=== PATIENT | male | born 1935 | race Caucasian/White ===

== ENCOUNTER 2016-11-29 10:54 | Inpatient (IN) ==
--- NOTE | 2016-11-29 11:39 | EKG Report ---
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
--- NOTE | 2016-11-29 11:51 | CT Report ---
CT head/brain wo con Indication: Syncope. CT BRAIN WITHOUT CONTRAST DLP: 9:15 mGy*cm Comparison: 08/03/2013. Date of admission: 11/29/2016. Technique: Axial noncontrast CT images of the brain were obtained. Findings: No acute hemorrhage, mass or mass effect. Generalized atrophy and patchy small vessel ischemic change of the deep white matter has progressed somewhat since previous examination. Old left occipital lobe infarct is stable as well. Cortical morris-white junction is otherwise maintained. No bone lesions. Significant opacification of the left maxillary, and mild mucosal thickening of the right maxillary and ethmoid air cells noted. Impression: 1. No acute intracranial pathology. 2. Progressive generalized atrophy and chronic small vessel ischemic change. Stable left occipital infarct. 3. Severe left maxillary and mild right maxillary and ethmoid sinusitis. PROCEDURE INTERPRETED AT [facility] DEPARTMENT OF RADIOLOGY Final Report Signed by: Carlos Pereira M.D.
--- NOTE | 2016-11-29 11:54 | XRay Report ---
XR chest 1V portable Indication: Shortness of breath. Chest one view: Comparison 08/03/2013. The heart size and mediastinal contour are normal. The lungs and pleural spaces are clear. Bones are unremarkable. Impression: Negative chest. PROCEDURE INTERPRETED AT [facility] DEPARTMENT OF RADIOLOGY Final Report Signed by: Carlos Pereira M.D.
[2016-11-29 12:09] LABS: Basophils % 0.1 % (0.0-0.8); Hemoglobin 10.4 GM/DL (14.0-18.0); Immature Granulocytes % 0.2 %; Immature Granulocytes Absolute 0.02 #; Lymphocytes # 0.6 10*3/uL (1.4-4.0); Lymphocytes % 5.7 % (21.2-54.2); Mean Corpuscular HGB Conc 32.5 GM/DL (32-36); Mean Corpuscular Hemoglobin 25 PG (27-34); Mean Platelet Volume 10.2 FL (9.6-12.0); Monocytes # 0.6 10*3/uL (0.11-0.8); Monocytes % 5.8 % (1.7-12.7); Neutrophils # 8.8 10*3/uL (1.4-7.4); Neutrophils % 88.2 % (38.7-73.9); Platelet Count 279 10*3/uL (130-400); Red Cell Distribution Width 13.2 % (9.3-17.3)
[2016-11-29 12:37] LABS: Alanine Aminotransferase 17 U/L (16-61); Albumin 2.7 G/DL (3.4-5.0); Alkaline Phosphatase 128 U/L (45-117); Aspartate Amino Transferase 9 U/L (0-37); Blood Urea Nitrogen 64 MG/DL (7-18); Calcium 8.8 MG/DL (8.5-10.1); Glucose 491 MG/DL (74-106); Osmolality,Calculated 301.7 MOS/KG (273-304); Potassium 4.6 MMOL/L (3.5-5.1); Sodium 131 MMOL/L (136-145); Total Protein 7.8 G/DL (6.4-8.3); Troponin I Only < 0.015 NG/ML (0.00-0.045)
[2016-11-29 12:59] LABS: Apearance,Urine CLOUDY (Clear); Bacteria,Urine Few /HPF (Few); Bilirubin,Urine Negative (Negative); Blood, Urine Moderate mg/dL (Negative); Glucose,Urine (UA) >=500 mg/dL (Negative); Ketones,Urine Negative (Negative); Mucus,Urine Occasional /LPF (Occasional); Nitrite,Urine Negative (Negative); Protein,Urine 30 MG/DL; RBC,Urine 14 /HPF (0-4); Squamous Epithelial Cell,Urine Occasional /HPF (0-10); Urine Color Yellow (Yellow); Urine Urobilinogen < 2.0 EU/DL (0.2-1.0); WBC,Urine 1645 /HPF (0-6)
[2016-11-29] MEDS ORDERED: LEVOFLOXACIN INJ 500 MG in PREMIX 1 EACH IV STA (13:12)
[2016-11-29] MEDS ORDERED: LEVOFLOXACIN INJ 100 ML IV ONE (13:16)
[2016-11-29] MEDS ORDERED: INSULIN LISPRO 100 UNIT/ML SUBCUT STA (13:33)
--- NOTE | 2016-11-29 13:44 | Emergency Department Note ---
Lencho Guillen Brittany, am scribing for, and in the presence of, Zaire Bone MD 11:18. Lizandro Guillen Doug C, MD, personally performed the services described in this documentation, ascribed by Inge Musa in my presence, and it is both accurate and complete 344 . Arrival - Arrival Chief Complaint: Fall Stated Complaint: FALL ED Nursing Triage Note: C/O FALLING THIS AM, NO KNOWN TIME OF THE FALL, PATIENT HIT ALERT AND CALLED EMS, DENIES HITTING HIS HEAD, DENIES HAVING LOC, UNPON ARRIVAL OF THE MEDIC - ACCUCHECK GREATER THAN THE 650 AND THEN A 518 READING AFTER THEY GAVE PATIENT 500 CC NS.,REPORTS THAT PATIENT IS AT NORMAL MENTAL STATUS/ NO FAMLY PRESENTS , PATIENT ALERT TO SELF AND PLACE,PATIENT DENIES HAVING ANY PAIN/ Mode of Arrival: Stretcher Limitations: No Limitations Source: Patient, Family, RN Notes Reviewed - History of Present Illness HPI Narrative: Patient is a 81-year-old white male who states he was in his kitchen making himself some coffee when he fell to the floor. He thinks he fell over backwards and hit the back of his head but he tells me he remembers the impact and did not lose consciousness. He is unable to tell me the day of the week or the year and according to his son he has had difficulty with his memory since his CVA. Patient denies any headache, neck pain, upper or lower extremity discomfort. He denies any back pain. He does not recall any palpitations, shortness of breath or diaphoresis before he fell. His history is considered of questionable accuracy. Allergies/Adverse Reactions: Allergies Allergy/AdvReac Type Severity Reaction Status Date / Time No Known Allergies Allergy Unverified 03/24/15 13:11 Home Medications: Home Medications Medication Instructions Recorded Confirmed Type Atorvastatin [Lipitor] 40 mg PO DAILY 03/24/15 05/02/16 History Glimepiride [Amaryl] 4 mg PO BID W/MEALS 03/24/15 05/02/16 History Memantine HCl [Namenda] 10 mg PO DAILY 03/24/15 05/02/16 History Tamsulosin [Flomax] 0.4 mg PO DAILY 03/24/15 05/02/16 History metFORMIN [Glucophage] 500 mg PO BID W/MEALS 03/24/15 05/02/16 History Docusate/Senna 50-8.6 [Senokot S] 1 tablet PO DAILY 05/02/16 05/02/16 History Hydrocodone/Acetaminophen 1 each PO Q6H PRN 05/02/16 05/02/16 History [Hydrocodon-Acetaminophn 10325] Review of System - Review of System 12 point system: reviewed and no additional remarkable complaints except as stated - Review of System Constitutional: Present: other (multiple falls). Absent: chills, fever Eyes: Absent: vision change Head/Ears/Nose/Throat: Absent: nasal drainage, sore throat Respiratory: Absent: respiratory distress Cardiovascular: Present: syncope. Absent: chest pain, palpitations Gastrointestinal: Absent: abdominal pain, nausea, vomiting, diarrhea, constipation Genitourinary male: Absent: urgency, dysuria, frequency Musculoskeletal: Absent: arm pain, back pain, leg pain, neck pain Skin: Absent: rash Neurological: Absent: headache Psychiatric: Absent: anxiety, depression Endocrine: Absent: fatigue Hematological/Lymphatic: Absent: easy bleeding, easy bruising Medical,Surgical,& Family Hx - Medical History Cardio: History of: Hypertension Neurology: History of: Dementia Endocrine: History of: Diabetes Mellitus (NIDDM) Genitourinary: History of: Prostate Problems (CA) Gastrointestinal: History of: Bowel Obstruction, Gastrointestinal Cancer (Colon) , GI Problems - Surgical History Abdominal Surgeries: Surgical HX of: Abdominal Surgery, Colonoscopy - Family History Family History: Reports;: Family Diabetes - Social History Smoking Status: Never smoker Frequency of Alcohol Use: None Type of Drug Use: None Exam Vital Signs: Vital Signs Temperature 98.1 F 11/29/16 10:55 Pulse Rate 84 11/29/16 12:26 Respiratory Rate 18 11/29/16 12:26 Blood Pressure 176/79 11/29/16 12:26 O2 Sat by Pulse Oximetry 94 L 11/29/16 12:26 - General General appearance: alert, in no apparent distress - Head Head exam: Present: atraumatic, normocephalic - Eye Eye exam: Present: EOMI. Absent: PERRL (constricted bilaterally, approximately 1 mm) - ENT ENT exam: Present: normal exam, normal oropharynx, mucous membranes moist - Neck Neck exam: Present: full ROM, trachea midline. Absent: tenderness - Chest Chest inspection: Present: symmetric chest wall rise. Absent: tenderness - Respiratory Respiratory exam: Present: normal lung sounds bilaterally. Absent: rales, rhonchi, wheezes - Cardiovascular Cardiovascular exam: Present: regular rate, normal rhythm, normal heart sounds. Absent: murmur, rubs, gallop - Abdominal Exam Abdominal exam: Present: soft, normal bowel sounds. Absent: distention, tenderness - Extremities Exam Extremities exam: Present: full ROM. Absent: tenderness - Back Exam Back exam: Present: full ROM. Absent: tenderness - Neurological Exam Neurological exam: Present: alert, CN II-XII intact. Absent: oriented X3 ( patient is somewhat confused, he is oriented to place but not time), motor sensory deficit - Psychiatric Psychiatric exam: Present: normal affect, normal mood - Skin Skin exam: Present: warm, dry, intact, normal color Course Course Narrative: Patient's clinical presentation, laboratory and radiographic findings were discussed with Dr. Rivas concerning admission. She will arrange for 1 of the of the hospitalist to admit the patient to their service. Results - Labs CBC & BMP: 11/29/16 11:41 11/29/16 11:41 Lab Results: I have reviewed the patients labs Labs: Laboratory Tests 11/29/16 11:09 POC Glucose 428 H Laboratory Tests 11/29/16 11:41 WBC 10.0 RBC 4.10 Hgb 10.4 L Hct 32.0 L MCV 78.0 L MCH 25 L MCHC 32.5 RDW 13.2 Plt Count 279 MPV 10.2 Neut % (Auto) 88.2 H Lymph % (Auto) 5.7 L O'Brien % (Auto) 5.8 Eos % (Auto) 0.0 Baso % (Auto) 0.1 Neut # (Auto) 8.8 H Lymph # (Auto) 0.6 L O'Brien # (Auto) 0.6 Eos # (Auto) 0.0 Baso # (Auto) 0.0 Immature Gran % 0.2 Nucleated RBC % 0.0 Immature Gran # 0.02 Nucleated RBCs # 0.00 Laboratory Tests 11/29/16 11/29/16 11:41 12:26 Sodium 131 L Potassium 4.6 Chloride 96 L Carbon Dioxide 20 L Anion Gap 19.6 H BUN 64 H Creatinine 2.90 H GFR Calculation 20 BUN/Creatinine Ratio 22.00 H Glucose 491 H Calculated Osmolality 301.7 Calcium 8.8 Total Bilirubin 0.80 AST 9 ALT 17 Alkaline Phosphatase 128 H Troponin I < 0.015 Total Protein 7.8 Albumin 2.7 L Globulin 5.1 H Albumin/Globulin Ratio 0.5 L Urine Color Yellow Urine Appearance Cloudy Urine pH 5.0 Ur Specific Harrison 1.010 Urine Protein 30 Urine Glucose (UA) >=500 Urine Ketones Negative Urine Blood Moderate Urine Nitrate Negative Urine Bilirubin Negative Urine Urobilinogen < 2.0 H Urine Leukocytes Large H Urine RBC 14 Urine WBC 1645 Urine WBC Clumps Many Ur Squamous Epith Cells Occasional Urine Bacteria Few Urine Mucus Occasional - Diagnostic Findings Procedure: Chest x-ray: report reviewed by me (Negative chest.), CT: report reviewed by me (head: 1. No acute intracranial pathology; 2. Progressive generalized atrophy and chronic small vessel ischemic change. Stable left occipital infarct; 3. Severe left maxillary and mild right maxillary and ethmoid sinusitis.) Disposition Clinical Impression: Near syncope, UTI (urinary tract infection) Case discussed with: patient, patient's family Disposition: Still a Patient Condition: Guarded Time of Disposition: 13:44
[2016-11-29] MEDS ORDERED: INSULIN LISPRO 100 UNIT/ML SUBCUT ONE (14:02)
[2016-11-29] MEDS ORDERED: ONDANSETRON 4 MG/2 ML VIAL IV PRN (14:18)
[2016-11-29] MEDS ORDERED: ACETAMINOPHEN 325 MG TABLET PO PRN (14:18)
[2016-11-29] MEDS: ENOXAPARIN 30 MG/0.3 ML SYRINGE SUBCUT SCH (17:38)
[2016-11-29] MEDS: SODIUM CHLORIDE 0.45% 1,000 ML IV SCH (17:38)
--- NOTE | 2016-11-29 17:51 | Hospitalist History & Physical ---
Assessment and Plan - Time spent with patient Time spent with patient: Greater than 30 minutes (1) ANGEL (acute kidney injury) Status: Acute Assessment and plan: Will hydrate, obtain renal US to rule out post renal causes. Current Visit: Yes (2) Fall Status: Acute Assessment and plan: PT/OT. Current Visit: Yes (3) Dementia Status: Acute Assessment and plan: Continue home medication. Current Visit: Yes (4) BPH (benign prostatic hyperplasia) Status: Acute Assessment and plan: Continue home med. Current Visit: Yes (5) UTI (urinary tract infection) Status: Acute Assessment and plan: Continue levaquin. Current Visit: Yes (6) Azotemia Status: Acute Assessment and plan: Secondary to ANGEL. Current Visit: Yes (7) Diabetes mellitus Status: Acute Assessment and plan: Medium dose SSI. Accuchecks. Current Visit: Yes History of Present Illness Chief complaint: Fall History of present illness: Mr. Sosa is a 81 year old male with a medical history of CVA, diabetes mellitus , BPH, dementia presents with confusion and fall. Family brought the patient in because he had fallen in the kitchen while trying to make coffee. Patient's has attempted to explain what happened however the explanation was somewhat nonsensical. Patient denies having a fever, nausea, vomiting, chest pain, shortness of breath, diarrhea, melena. While in the ED the patient was found to have a urinary tract infection. Internal medicine was counseled for admission. Home Medications Medication Instructions Recorded Confirmed Type Atorvastatin [Lipitor] 40 mg PO DAILY 03/24/15 11/29/16 History Memantine HCl [Namenda] 10 mg PO BEDTIME 03/24/15 11/29/16 History Tamsulosin [Flomax] 0.4 mg PO DAILY 03/24/15 11/29/16 History metFORMIN [Glucophage] 500 mg PO BID W/MEALS 03/24/15 11/29/16 History Allergies Allergy/AdvReac Type Severity Reaction Status Date / Time No Known Allergies Allergy Unverified 03/24/15 13:11 Medical,Surgical,& Family Hx - Medical History Cardio: History of: Hypertension Neurology: History of: Cerebrovascular Accident, Dementia Endocrine: History of: Diabetes Mellitus (NIDDM) Genitourinary: History of: Prostate Problems (CA) Gastrointestinal: History of: Bowel Obstruction, Gastrointestinal Cancer (Colon) , GI Problems - Surgical History Abdominal Surgeries: Surgical HX of: Abdominal Surgery, Colonoscopy - Family History Family History: Reports;: Family Diabetes (mother and father) - Social History Smoking Status: Never smoker Frequency of Alcohol Use: None Type of Drug Use: None ROS unobtainable: due to encephalopathy 12 point system: reviewed and no additional remarkable complaints except as stated Exam - Constitutional Vitals: Period Temp Pulse Resp BP Sys/Childers Pulse Ox Last 24 Hr 96.9 F 80 18 166/91 100 General appearance: no acute distress - Head Head exam: Present: normocephalic, atraumatic - Eye Eye exam: Present: EOMI Pupils: Present: GABRIEL - ENT ENT exam: Present: normal exam - Neck Neck exam: Present: normal inspection - Respiratory Respiratory exam: Present: clear to auscultation bilaterally. Absent: rhonchi, wheezes - Cardiovascular Cardiovascular exam: Present: regular rate and rhythm. Absent: gallop, rubs, systolic murmur - GI/Abdominal GI/Abdominal exam: Present: normal bowel sounds, soft. Absent: distended, firm , guarding, tenderness, rebound - Extremities Exam Extremities exam: Present: normal inspection. Absent: calf tenderness, edema Results - Labs CBC & BMP: 11/29/16 11:41 11/29/16 11:41 Lab Results: I have reviewed the past 24 hour labs
[2016-11-29] MEDS ORDERED: GLUCAGON 1 MG VIAL IM PRN (18:01)
[2016-11-29] MEDS ORDERED: DEXTROSE 50% 25 GM/50 ML VIAL IV PRN (18:01)
--- NOTE | 2016-11-29 21:06 | Ultrasound Report ---
US renal Bilateral Indication: Acute renal failure. Renal ultrasound: Grayscale and color Doppler imaging of the kidneys and bladder performed. Right kidney 116 x 54 x 51 mm. Left kidney 111 x 56 x 47 mm. No mass, cyst or calcification of either kidney. Color Doppler flow both renal irving noted. Mild/moderate bilateral hydronephrosis present. Bladder is distended, volume 2038 cc. Bilateral ureter jets are present. Impression: Bladder outlet obstruction with bilateral hydronephrosis. PROCEDURE INTERPRETED AT [facility] DEPARTMENT OF RADIOLOGY Final Report Signed by: Carlos Pereira M.D.
[2016-11-29] MEDS: INSULIN REGULAR 100 UNIT/ML SUBCUT SCH (21:29)
[2016-11-29] MEDS: DOCUSATE SODIUM 100 MG CAPSULE PO SCH (21:30)
[2016-11-29] MEDS: MEMANTINE 10 MG TABLET PO SCH (21:30)
[2016-11-30] MEDS: SODIUM CHLORIDE 0.45% 1,000 ML IV SCH ×4 (03:40→21:18)
[2016-11-30 03:46] LABS: Calcium 8.6 MG/DL (8.5-10.1); Potassium 3.9 MMOL/L (3.5-5.1)
[2016-11-30 03:49] LABS: Basophils % 0.3 % (0.0-0.8); Eosinophils # 0.1 10*3/uL (0.0-0.87); Eosinophils % 0.7 % (0.00-10.9); Hematocrit 30.1 VOL% (42.0-52.0); Hemoglobin 9.6 GM/DL (14.0-18.0); Immature Granulocytes % 0.3 %; Immature Granulocytes Absolute 0.03 #; Lymphocytes # 1.4 10*3/uL (1.4-4.0); Lymphocytes % 14.6 % (21.2-54.2); Mean Corpuscular HGB Conc 31.9 GM/DL (32-36); Mean Corpuscular Hemoglobin 25 PG (27-34); Mean Corpuscular Volume 78.4 FL (87-102); Mean Platelet Volume 10.1 FL (9.6-12.0); Monocytes # 0.8 10*3/uL (0.11-0.8); Monocytes % 8.6 % (1.7-12.7); Neutrophils # 7.2 10*3/uL (1.4-7.4); Neutrophils % 75.5 % (38.7-73.9); Platelet Count 283 10*3/uL (130-400); Red Blood Count 3.84 10*6/uL (3.8-5.5); Red Cell Distribution Width 13.3 % (9.3-17.3); White Blood Count 9.5 10*3/uL (4.5-13.71)
[2016-11-30] MEDS: INSULIN REGULAR 100 UNIT/ML SUBCUT SCH ×4 (08:52→21:18)
[2016-11-30] MEDS: LEVOFLOXACIN INJ 250 MG in PREMIX 1 EACH IV SCH (08:54)
[2016-11-30] MEDS: DOCUSATE SODIUM 100 MG CAPSULE PO SCH ×2 (08:54→21:18)
[2016-11-30] MEDS: ATORVASTATIN 40 MG TABLET PO SCH (08:54)
[2016-11-30] MEDS: PANTOPRAZOLE 40 MG TABLET PO SCH (08:54)
[2016-11-30] MEDS: TAMSULOSIN 0.4 MG CAPSULE PO SCH (08:54)
[2016-11-30 11:44] LABS: Bacteria,Urine Few /HPF (Few); Bilirubin,Urine Negative (Negative); Blood, Urine Moderate mg/dL (Negative); Glucose,Urine (UA) >=500 mg/dL (Negative); Ketones,Urine Negative (Negative); Mucus,Urine Few /LPF (Occasional); Nitrite,Urine Negative (Negative); Protein,Urine 100 MG/DL; RBC,Urine 289 /HPF (0-4); Squamous Epithelial Cell,Urine Few /HPF (0-10); Urine Specific Gravity 1.006 (1.001-1.035); Urine Urobilinogen < 2.0 EU/DL (0.2-1.0); WBC,Urine 5478 /HPF (0-6)
[2016-11-30 11:46] LABS: Apearance,Urine Turbid (Clear); Urine Color Yellow (Yellow)
--- NOTE | 2016-11-30 13:16 | Urology Progress Note ---
Urology - PN: Subj Interval history: Thanks for calling Full consult dictated - Conf #20 AUR leave raphael con't flomax await UCX will notify Dr Bone Will attempt trial of void later in week Pt may need TURP in future Exam - Constitutional Vitals: Period Temp Pulse Resp BP Sys/Childers Pulse Ox Last 24 Hr 96.9 F-98.6 F 78-103 15-20 101-204/47-93 95-100 Results - Labs CBC & BMP: 11/30/16 02:32 11/30/16 02:32
--- NOTE | 2016-11-30 13:44 | Hospitalist Progress Note ---
Assessment and Plan - Time spent with patient Time spent with patient: Greater than 30 minutes (1) ANGEL (acute kidney injury) Status: Acute Assessment and plan: Post renal. Current Visit: Yes (2) Fall Status: Acute Assessment and plan: PT/OT. Current Visit: Yes (3) Dementia Status: Acute Assessment and plan: Continue home medication. Current Visit: Yes (4) BPH (benign prostatic hyperplasia) Status: Acute Assessment and plan: Continue home med. Current Visit: Yes (5) UTI (urinary tract infection) Status: Acute Assessment and plan: Continue levaquin. Current Visit: Yes (6) Azotemia Status: Acute Assessment and plan: Secondary to ANGEL. Current Visit: Yes (7) Diabetes mellitus Status: Acute Assessment and plan: Medium dose SSI. Accuchecks. Current Visit: Yes Hospitalist: Subjective Interval history: No complaints. Patient had a raphael placed this morning. Exam - Constitutional Vitals: Period Temp Pulse Resp BP Sys/Childers Pulse Ox Last 24 Hr 96.9 F-98.6 F 78-103 15-20 101-204/47-93 95-100 General appearance: no acute distress - Head Head exam: Present: normocephalic, atraumatic - Eye Eye exam: Present: EOMI Pupils: Present: GABRIEL - ENT ENT exam: Present: normal exam - Neck Neck exam: Present: normal inspection - Respiratory Respiratory exam: Present: clear to auscultation bilaterally. Absent: rhonchi, wheezes - Cardiovascular Cardiovascular exam: Present: regular rate and rhythm. Absent: gallop, rubs, systolic murmur - GI/Abdominal GI/Abdominal exam: Present: normal bowel sounds, soft. Absent: distended, firm , guarding, tenderness, rebound - Extremities Exam Extremities exam: Present: normal inspection. Absent: calf tenderness, edema Results - Labs CBC & BMP: 11/30/16 02:32 11/30/16 02:32 Lab Results: I have reviewed the past 24 hour labs
[2016-11-30] MEDS ORDERED: INSULIN LISPRO 100 UNIT/ML SUBCUT ONE (14:47)
[2016-11-30] MEDS: ENOXAPARIN 30 MG/0.3 ML SYRINGE SUBCUT SCH (15:13)
--- NOTE | 2016-11-30 17:26 | Consultation ---
DATE OF CONSULT: 11/30/2016 REASON FOR CONSULTATION: 1. Urinary retention. 2. Prostate hyperplasia. 3. Acute renal failure. Thank you for asking Urology Service to see Mr. Sosa. HISTORY OF PRESENT ILLNESS: Mr. Sosa is an 81-year-old male who was admitted on 11/29/2016 after a same level fall. He had some mental status changes. On admission, he was found to have a creatini ne of 3.3. I am not sure what his baseline is. He is unable to give a reasonable history due to ba seline dementia. In review of the chart and in discussion with the nursing staff, he had an abdominal ultrasound whic h showed bilateral hydroureteronephrosis down to the level of the distended bladder. Ultrasonograph y calculated the bladder volume at approximately 2 liters. A Dennis catheter has been placed and lucio roximately 80 ml of urine drained immediately followed quickly by another [address] the catheter was placed another 800 ml is in the bag for a total of almost 2 liters now. Mr. Sosa states he feels much better with the Dennis catheter having been placed. Initially when I had asked him if he had seen a urologist, he states he has not ever seen a urologist. I asked him i f he is on any prostate medication. He states he thinks he is on Flomax and that Dr. Bone presc ribed this. I then asked about seeing a urologist and then he remembered that he had in fact seen Chanda Bone. He denies any history of prostate surgery. Past medical, surgical, social, and family history is reviewed on the chart. REVIEW OF SYSTEMS: Twelve systems was attempted but unable to be obtained adequately due to his dem entia. I did review the review of systems on the admission history and physical. PHYSICAL EXAMINATION GENERAL: A well-developed, well-nourished male in no acute distress. HEENT: Normocephalic, atraumatic. NECK: No JVD. CHEST: Equal expansion bilaterally. ABDOMEN: Soft, nontender, nondistended. SKIN: Warm and dry. NEUROLOGIC: Nonfocal. GENITOURINARY: A Dennis catheter draining clear urine into the bedside bag. LABORATORY DATA: Creatinine is 3.3. Renal ultrasound images were personally reviewed showing bilateral hydroureteronephrosis and a marke dly distended bladder. Urinalysis appears grossly infected. I explained to Mr. Sosa that we are going to leave the catheter in for a while to allow the bladder to rest. He may have to be observed for post-obstructive diuresis and fluids were placed according ly. I recommend that he continue the Flomax and leave the catheter in for several days. He may end up needing a TURP. IMPRESSION: 1. URINARY RETENTION. 2. RENAL INSUFFICIENCY SECONDARY TO URINARY RETENTION. 3. BILATERAL HYDRONEPHROSIS SECONDARY TO URINARY RETENTION. PLAN: 1. Dennis catheter is in place. 2. Continue Flomax daily. 3. Urine has been sent for culture. 4. I will notify Dr. Matheus Bone that Mr. Sosa has been admitted, and Mr. Sosa will likely need a trial of void versus a TURP later on this week. Thank you for asking Urology Service to see Mr. Sosa.
[2016-11-30] MEDS: INSULIN GLARGINE 100 UNIT/ML SUBCUT SCH (21:18)
[2016-11-30] MEDS: MEMANTINE 10 MG TABLET PO SCH (21:18)
[2016-12-01] MEDS: SODIUM CHLORIDE 0.45% 1,000 ML IV SCH ×4 (02:25→22:21)
[2016-12-01 06:30] LABS: Basophils % 0.1 % (0.0-0.8); Eosinophils # 0.1 10*3/uL (0.0-0.87); Eosinophils % 0.8 % (0.00-10.9); Hematocrit 28.2 VOL% (42.0-52.0); Hemoglobin 9.1 GM/DL (14.0-18.0); Immature Granulocytes % 0.5 %; Immature Granulocytes Absolute 0.04 #; Lymphocytes # 1.2 10*3/uL (1.4-4.0); Lymphocytes % 14.9 % (21.2-54.2); Mean Corpuscular HGB Conc 32.3 GM/DL (32-36); Mean Corpuscular Hemoglobin 25 PG (27-34); Mean Corpuscular Volume 77.7 FL (87-102); Mean Platelet Volume 10.1 FL (9.6-12.0); Monocytes # 0.7 10*3/uL (0.11-0.8); Monocytes % 8.2 % (1.7-12.7); Neutrophils % 75.5 % (38.7-73.9); Platelet Count 269 10*3/uL (130-400); Red Blood Count 3.63 10*6/uL (3.8-5.5); Red Cell Distribution Width 13.3 % (9.3-17.3)
[2016-12-01 06:55] LABS: Calcium 8.1 MG/DL (8.5-10.1); Osmolality,Calculated 292.5 MOS/KG (273-304)
[2016-12-01] MEDS: DOCUSATE SODIUM 100 MG CAPSULE PO SCH ×2 (09:21→21:02)
[2016-12-01] MEDS: LEVOFLOXACIN INJ 250 MG in PREMIX 1 EACH IV SCH (09:21)
[2016-12-01] MEDS: PANTOPRAZOLE 40 MG TABLET PO SCH (09:21)
[2016-12-01] MEDS: INSULIN REGULAR 100 UNIT/ML SUBCUT SCH ×4 (09:21→21:03)
[2016-12-01] MEDS: ATORVASTATIN 40 MG TABLET PO SCH (09:21)
[2016-12-01] MEDS: TAMSULOSIN 0.4 MG CAPSULE PO SCH ×2 (09:21→21:02)
--- NOTE | 2016-12-01 10:21 | Urology Consultation ---
Assessment and Plan - Time spent with patient Time spent with patient: Greater than 30 minutes (1) BPH (benign prostatic hyperplasia) Status: Acute Assessment and plan: I'm going to double his Flomax dose and add Avodart. I will remove the catheter tomorrow morning and begin in and out cathetering him. This may be something he will have to do from now on. Current Visit: Yes History of Present Illness - Data of Consult Patient: known to practice within the last 3 years Consult date: 12/01/16 Requesting Physician: Marsha Iraheta Primary care physician: Ronald Lara - Consult Narrative Reason for consult: BPH with urinary retention, bilateral hydronephrosis, renal failure History of present illness: Mr. Sosa is a 81 year old male who is very well known to me. History of BPH in the past. History of bladder cancer for many years. I scoped him about once a year. He's been on Flomax for years. He apparently developed urinary retention has bilateral hydronephrosis and his creatinine was up to 3.3. He apparently had approximately 2 liters in his bladder. His creatinine now is dropped to 2.9. The Flomax is been restarted. I recommend we double the dose and add Avodart. He is on a lot of dimension medicines which are somewhat his bladder down and that is probably the normal one factor affecting this. I will remove his Dennis and give him a voiding trial and in and out cathetering. He may require intermittent catheter from now on. CC: Marsha Iraheta MD - Home Medications and Allergies Home Medications: Home Medications Medication Instructions Recorded Confirmed Type Atorvastatin [Lipitor] 40 mg PO DAILY 03/24/15 11/29/16 History Memantine HCl [Namenda] 10 mg PO BEDTIME 03/24/15 11/29/16 History Tamsulosin [Flomax] 0.4 mg PO DAILY 03/24/15 11/29/16 History metFORMIN [Glucophage] 500 mg PO BID W/MEALS 03/24/15 11/29/16 History Allergies/Adverse Reactions: Allergies Allergy/AdvReac Type Severity Reaction Status Date / Time No Known Allergies Allergy Unverified 03/24/15 13:11 12 point system: reviewed and no additional remarkable complaints except as stated Exam - Constitutional Vitals: Period Temp Pulse Resp BP Sys/Childers Pulse Ox Last 24 Hr 97.4 F-99.5 F 76-91 18-20 133-186/68-81 95-99 - GI/Abdominal GI/Abdominal exam: Present: normal bowel sounds, tenderness (suprapubic), soft. Absent: ascites, distended, firm, guarding, mass, rebound - Genitourinary Genitourinary: scrotum without lesions, cysts, edema or rash, penis with no lesions or discharge (Dennis in place), diffusely enlarged prostate without tenderness Results - Labs CBC & BMP: 12/01/16 05:09 12/01/16 05:09 Lab Results: I have reviewed the past 24 hour labs - Diagnostic Findings Procedure: Ultrasound: report reviewed by me
[2016-12-01] MEDS: DUTASTERIDE 0.5 MG CAPSULE PO SCH (11:32)
[2016-12-01] MEDS: cefTRIAXone 1,000 MG in SODIUM CHLORIDE 0.9% 100 ML IV SCH (11:33)
[2016-12-01] MEDS: ENOXAPARIN 30 MG/0.3 ML SYRINGE SUBCUT SCH (14:08)
[2016-12-01] MEDS ORDERED: BISACODYL 5 MG TABLET PO PRN (16:55)
[2016-12-01] MEDS ORDERED: MAGNESIUM CITRATE 300 ML BOTTLE PO PRN (16:58)
--- NOTE | 2016-12-01 17:10 | Hospitalist Progress Note ---
Assessment and Plan - Time spent with patient Time spent with patient: Greater than 30 minutes (1) ANGEL (acute kidney injury) Status: Acute Assessment and plan: Post renal. Current Visit: Yes (2) Fall Status: Acute Assessment and plan: PT/OT. Current Visit: Yes (3) Dementia Status: Acute Assessment and plan: Continue home medication. Current Visit: Yes (4) BPH (benign prostatic hyperplasia) Status: Acute Assessment and plan: Continue home med. Current Visit: Yes (5) UTI (urinary tract infection) Status: Acute Assessment and plan: Continue rocephin. E coli. Current Visit: Yes (6) Azotemia Status: Acute Assessment and plan: Secondary to ANGEL. Current Visit: Yes (7) Diabetes mellitus Status: Acute Assessment and plan: Medium dose SSI. Accuchecks. Current Visit: Yes Hospitalist: Subjective Interval history: No complaints, no overnight events. Exam - Constitutional Vitals: Period Temp Pulse Resp BP Sys/Childers Pulse Ox Last 24 Hr 98.4 F 82 20 152/70 90 General appearance: no acute distress - Head Head exam: Present: normocephalic, atraumatic - Eye Eye exam: Present: EOMI Pupils: Present: GABRIEL - ENT ENT exam: Present: normal exam - Neck Neck exam: Present: normal inspection - Respiratory Respiratory exam: Present: clear to auscultation bilaterally. Absent: rhonchi, wheezes - Cardiovascular Cardiovascular exam: Present: regular rate and rhythm. Absent: gallop, rubs, systolic murmur - GI/Abdominal GI/Abdominal exam: Present: normal bowel sounds, soft. Absent: distended, firm , guarding, tenderness, rebound - Extremities Exam Extremities exam: Present: normal inspection. Absent: calf tenderness, edema Results - Labs CBC & BMP: 12/01/16 05:09 12/01/16 05:09 Lab Results: I have reviewed the past 24 hour labs
[2016-12-01] MEDS: INSULIN GLARGINE 100 UNIT/ML SUBCUT SCH (21:02)
[2016-12-01] MEDS: MEMANTINE 10 MG TABLET PO SCH (21:02)
[2016-12-02] MEDS: SODIUM CHLORIDE 0.45% 1,000 ML IV SCH ×3 (06:14→21:32)
[2016-12-02 06:20] LABS: Basophils % 0.1 % (0.0-0.8); Eosinophils # 0.1 10*3/uL (0.0-0.87); Eosinophils % 1.4 % (0.00-10.9); Hematocrit 29.6 VOL% (42.0-52.0); Hemoglobin 9.4 GM/DL (14.0-18.0); Immature Granulocytes % 0.5 %; Immature Granulocytes Absolute 0.04 #; Lymphocytes # 1.1 10*3/uL (1.4-4.0); Lymphocytes % 14.1 % (21.2-54.2); Mean Corpuscular HGB Conc 31.8 GM/DL (32-36); Mean Corpuscular Hemoglobin 25 PG (27-34); Mean Corpuscular Volume 78.3 FL (87-102); Mean Platelet Volume 9.9 FL (9.6-12.0); Monocytes # 0.7 10*3/uL (0.11-0.8); Monocytes % 8.9 % (1.7-12.7); Platelet Count 302 T/CUMM (130-400); Red Blood Count 3.78 MC/CUMM (3.8-5.5); Red Cell Distribution Width 13.5 % (9.3-17.3)
[2016-12-02 06:51] LABS: Calcium 8.1 MG/DL (8.5-10.1); Osmolality,Calculated 289.4 MOS/KG (273-304); Potassium 4.2 MMOL/L (3.5-5.1)
[2016-12-02] MEDS: INSULIN REGULAR 100 UNIT/ML SUBCUT SCH ×4 (08:09→20:06)
[2016-12-02] MEDS: DUTASTERIDE 0.5 MG CAPSULE PO SCH (08:58)
[2016-12-02] MEDS: DOCUSATE SODIUM 100 MG CAPSULE PO SCH ×2 (08:59→20:06)
[2016-12-02] MEDS: ATORVASTATIN 40 MG TABLET PO SCH (09:00)
[2016-12-02] MEDS: TAMSULOSIN 0.4 MG CAPSULE PO SCH ×2 (09:00→20:06)
[2016-12-02] MEDS: PANTOPRAZOLE 40 MG TABLET PO SCH (09:01)
[2016-12-02] MEDS: cefTRIAXone 1,000 MG in SODIUM CHLORIDE 0.9% 100 ML IV SCH (09:33)
--- NOTE | 2016-12-02 11:39 | Urology Progress Note ---
Assessment and Plan (1) BPH (benign prostatic hyperplasia) Status: Acute Assessment and plan: I'm going to double his Flomax dose and add Avodart. I will remove the catheter tomorrow morning and begin in and out cathetering him. This may be something he will have to do from now on. Current Visit: Yes Urology - PN: Subj Interval history: Patient's catheter is out. He is yet to void. We will again intermittent catheterization. He needs to ambulate. Exam - Constitutional Vitals: Period Temp Pulse Resp BP Sys/Childers Pulse Ox Last 24 Hr 97.9 F-99.1 F 78-87 16-20 149-164/64-95 90-99 Results - Labs CBC & BMP: 12/02/16 05:23 12/02/16 05:23
[2016-12-02] MEDS: ENOXAPARIN 30 MG/0.3 ML SYRINGE SUBCUT SCH (13:50)
--- NOTE | 2016-12-02 14:42 | Hospitalist Progress Note ---
Assessment and Plan - Time spent with patient Time spent with patient: Greater than 30 minutes (1) UTI (urinary tract infection) Status: Acute Assessment and plan: Continue rocephin. E coli. Current Visit: Yes (2) ANGEL (acute kidney injury) Status: Acute Assessment and plan: Post renal. Improving. Current Visit: Yes (3) Fall Status: Acute Assessment and plan: PT/OT. Current Visit: Yes (4) Dementia Status: Acute Assessment and plan: Continue home medication. Current Visit: Yes (5) BPH (benign prostatic hyperplasia) Status: Acute Assessment and plan: Continue home med. Current Visit: Yes (6) Azotemia Status: Acute Assessment and plan: Secondary to ANGEL. Current Visit: Yes (7) Diabetes mellitus Status: Acute Assessment and plan: Medium dose SSI. Accuchecks. Current Visit: Yes Hospitalist: Subjective Interval history: No complaints, no overnight events. Exam - Constitutional Vitals: Period Temp Pulse Resp BP Sys/Childers Pulse Ox Last 24 Hr 97.9 F-99.1 F 78-87 16-20 149-164/64-95 90-99 General appearance: no acute distress - Head Head exam: Present: normocephalic, atraumatic - Eye Eye exam: Present: EOMI Pupils: Present: GABRIEL - ENT ENT exam: Present: normal exam - Neck Neck exam: Present: normal inspection - Respiratory Respiratory exam: Present: clear to auscultation bilaterally. Absent: rhonchi, wheezes - Cardiovascular Cardiovascular exam: Present: regular rate and rhythm. Absent: gallop, rubs, systolic murmur - GI/Abdominal GI/Abdominal exam: Present: normal bowel sounds, soft. Absent: distended, firm , guarding, tenderness, rebound - Extremities Exam Extremities exam: Present: normal inspection. Absent: calf tenderness, edema Results - Labs CBC & BMP: 12/02/16 05:23 12/02/16 05:23 Lab Results: I have reviewed the past 24 hour labs
[2016-12-02] MEDS: MEMANTINE 10 MG TABLET PO SCH (20:06)
[2016-12-02] MEDS: INSULIN GLARGINE 100 UNIT/ML SUBCUT SCH (20:06)
[2016-12-03 03:40] LABS: Basophils % 0.3 % (0.0-0.8); Eosinophils # 0.1 10*3/uL (0.0-0.87); Eosinophils % 1.9 % (0.00-10.9); Hematocrit 26.4 VOL% (42.0-52.0); Hemoglobin 8.6 GM/DL (14.0-18.0); Immature Granulocytes % 0.8 %; Immature Granulocytes Absolute 0.05 #; Lymphocytes # 1.5 10*3/uL (1.4-4.0); Lymphocytes % 22.7 % (21.2-54.2); Mean Corpuscular HGB Conc 32.6 GM/DL (32-36); Mean Corpuscular Hemoglobin 25 PG (27-34); Mean Corpuscular Volume 77.9 FL (87-102); Mean Platelet Volume 9.7 FL (9.6-12.0); Monocytes # 0.6 10*3/uL (0.11-0.8); Neutrophils # 4.2 10*3/uL (1.4-7.4); Neutrophils % 65.3 % (38.7-73.9); Platelet Count 251 T/CUMM (130-400); Red Blood Count 3.39 MC/CUMM (3.8-5.5); Red Cell Distribution Width 13.6 % (9.3-17.3); White Blood Count 6.5 T/CUMM (4-12)
[2016-12-03 04:19] LABS: Calcium 7.8 MG/DL (8.5-10.1); Potassium 4.3 MMOL/L (3.5-5.1)
[2016-12-03] MEDS: DUTASTERIDE 0.5 MG CAPSULE PO SCH (08:10)
[2016-12-03] MEDS: TAMSULOSIN 0.4 MG CAPSULE PO SCH (08:11)
[2016-12-03] MEDS: ATORVASTATIN 40 MG TABLET PO SCH (08:11)
[2016-12-03] MEDS: PANTOPRAZOLE 40 MG TABLET PO SCH (08:11)
[2016-12-03] MEDS: DOCUSATE SODIUM 100 MG CAPSULE PO SCH (08:11)
[2016-12-03] MEDS: INSULIN REGULAR 100 UNIT/ML SUBCUT SCH ×2 (08:16→13:37)
--- NOTE | 2016-12-03 09:32 | Urology Progress Note ---
Assessment and Plan (1) BPH (benign prostatic hyperplasia) Status: Acute Assessment and plan: I'm going to double his Flomax dose and add Avodart. I will remove the catheter tomorrow morning and begin in and out cathetering him. This may be something he will have to do from now on. Current Visit: Yes Urology - PN: Subj Interval history: The patient is not functioning. His residuals are from 850 to 1200 cc. The patient is going to time manner. I will stop Rocephin and place him on Bactrim twice a day. He needs to be on that for 10 days. I will follow him up a time manner. Exam - Constitutional Vitals: Period Temp Pulse Resp BP Sys/Childers Pulse Ox Last 24 Hr 98.5 F-99.8 F 78-85 16-20 153-169/64-76 95-98 Results - Labs CBC & BMP: 12/03/16 03:20 12/03/16 03:20
--- NOTE | 2016-12-03 11:09 | Discharge Summary ---
<Alfreda Tovar - Last Filed: 12/03/16 11:06> Hospital Course - Hospital Course Hospital Course: Mr. Sosa was admitted on 11/29 with acute kidney injury, falls, UTI along with his dementia, and diabetes. Dr. Matheus Bone was consulted for urology and saw Mr. Sosa on 12/01/16 for BPH. His Flomax was doubled and avodart was added. He also has a hx of bladder cancer. He was started on a medium dose sliding scale for elevated glucoses. He was initially started on Rocephin and this was stopped and he was placed on Bactrim BID. Urology feels that he will need to be on this for 10 days total. His creatinine is down from 2.9 at 1.5 today and he has improved and ready for discharge. He will be discharged home on Bactrim BID x 10 days and appropriate follow up. - Time spent with patient Time with patient DS: Greater than 30 minutes (due to plan, doc and med rec.) Diagnosis - Discharge Diagnosis (1) ANGEL (acute kidney injury) Status: Acute (2) Azotemia Status: Acute (3) BPH (benign prostatic hyperplasia) Status: Acute (4) Dementia Status: Acute (5) Diabetes mellitus Status: Acute (6) Fall Status: Acute (7) E. coli UTI Status: Acute Discharge Plan - Discharge Data Disposition: Rehab Fac/Unit W Plan Readm - Discharge Medications New Atorvastatin [Lipitor] 40 mg PO DAILY tablet Dutasteride [Avodart] 0.5 mg PO DAILY capsule Insulin Regular [HumuLIN R] See Protocol SUBCUT ACHS injection Magnesium Citrate [Citroma] 300 ml PO DAILY PRN #0 bottle PRN Reason: constipation Memantine [Namenda] 10 mg PO BEDTIME tablet Tamsulosin [Flomax] 0.4 mg PO BID capsule Docusate Sodium Cap [Colace Cap] 100 mg PO BID capsule Insulin Glargine [Lantus] 15 unit SUBCUT BEDTIME injection Sulfameth/Trimeth 800-160 Tab [Bactrim DS Tab] 1 tablet PO BID tablet Continue metFORMIN [Glucophage] 500 mg PO BID W/MEALS Discontinued Memantine HCl [Namenda] 10 mg PO BEDTIME Tamsulosin [Flomax] 0.4 mg PO DAILY Atorvastatin [Lipitor] 40 mg PO DAILY - Follow Up or Referral - Forms/Instructions Exam - Constitutional Vitals: Period Temp Pulse Resp BP Sys/Childers Pulse Ox Last 24 Hr 97.6 F-99.8 F 76-86 16-20 140-169/64-73 95-98 Discharge Results Labs on day of discharge: Labs from last 24 hours 12/03/16 12/03/16 12/03/16 11:15 07:11 03:20 WBC RBC Hgb Hct MCV MCH MCHC RDW Plt Count MPV Neut % (Auto) Lymph % (Auto) Ashley % (Auto) Eos % (Auto) Baso % (Auto) Neut # (Auto) Lymph # (Auto) Ashley # (Auto) Eos # (Auto) Baso # (Auto) Immature Gran % Nucleated RBC % Immature Gran # Nucleated RBCs # Sodium 143 Potassium 4.3 Chloride 109 H Carbon Dioxide 26 Anion Gap 12.3 BUN 23 H Creatinine 1.50 H GFR Calculation 46 BUN/Creatinine Ratio 15.00 Glucose 98 POC Glucose 220 H 97 Calculated Osmolality 288.0 Calcium 7.8 L 12/03/16 12/02/16 12/02/16 03:20 19:08 16:20 WBC 6.5 RBC 3.39 L Hgb 8.6 L Hct 26.4 L MCV 77.9 L MCH 25 L MCHC 32.6 RDW 13.6 Plt Count 251 MPV 9.7 Neut % (Auto) 65.3 Lymph % (Auto) 22.7 Ashley % (Auto) 9.0 Eos % (Auto) 1.9 Baso % (Auto) 0.3 Neut # (Auto) 4.2 Lymph # (Auto) 1.5 Ashley # (Auto) 0.6 Eos # (Auto) 0.1 Baso # (Auto) 0.0 Immature Gran % 0.8 Nucleated RBC % 0.0 Immature Gran # 0.05 Nucleated RBCs # 0.00 Sodium Potassium Chloride Carbon Dioxide Anion Gap BUN Creatinine GFR Calculation BUN/Creatinine Ratio Glucose POC Glucose 288 H 294 H Calculated Osmolality Calcium DS: Provider Date of admission: 12/01/16 14:26 Primary care physician: . No PCP Attending physician on admission: Marsha Iraheta MD Discharging clinician: Alfreda Tovar NP Expected date of discharge: 12/03/16 <Vy Mejia - Last Filed: 12/03/16 13:06> Hospital Course - Hospital Course Hospital Course: This is an addendum to discharge summary: I was assessment and plan. I personally examined and interviewed the patient. Patient admitted for urinary tract infection and history of falls. Apparently had acute kidney injury on admission. Was treated with IV fluids. Currently his creatinine 1.5. He was seen by urology and it was recommended to increase Flomax and add Avodart. He will be discharged on Bactrim double strength twice daily for 10 days as recommended. Patient will be discharged to rehab to [facility] Discharge Plan - Discharge Data Condition at Discharge: Stable Discharge Diet: advance to your usual diet Activity: resume usual activities as tolerated Hygiene: no restrictions Weight Bearing at Discharge: full weight bearing Contact your physician if you experience:: fever over 101, Difficulty voiding, Nausea/Vomiting, pain uncontrolled by pain medications
[2016-12-03 11:53] VITALS: BP 140/65
[2016-12-03] MEDS: SODIUM CHLORIDE 0.45% 1,000 ML IV SCH (13:57)
[2016-12-03] MEDS ORDERED: ENOXAPARIN 40 MG/0.4 ML SYRINGE SUBCUT SCH (15:00)
[2016-12-03] MEDS ORDERED: SULFAMETHOX/TRIMETHOPRIM 800-160 MG TABLET PO SCH (21:00)
== END 2016-12-03 14:13 | DRG 683 ==
LOC: EDUNIT# → EDBD → N.EDINP 10:54 → N.ED 10:54 → N.5E 15:04
PROVIDERS: ADMIT Internal Medicine; ATTEND Internal Medicine

== ENCOUNTER 2018-05-31 01:19 | Inpatient (IN) ==
[2018-05-31] MEDS ORDERED: ASPIRIN 325 MG TABLET PO STA (01:48)
[2018-05-31] MEDS ORDERED: FUROSEMIDE 100 MG/10 ML VIAL IV STA (01:48)
[2018-05-31] MEDS ORDERED: ALBUTEROL/IPRATROPIUM 3 ML NEB RESP TX STA (01:48)
[2018-05-31 02:13] LABS: Basophils % 0.4 % (0.0-0.8); Eosinophils # 0.4 10*3/uL (0.0-0.87); Eosinophils % 4.8 % (0.00-10.9); Hematocrit 27.9 VOL% (42.0-52.0); Hemoglobin 8.3 GM/DL (14.0-18.0); Immature Granulocytes % 0.3 %; Immature Granulocytes Absolute 0.02 #; Lymphocytes # 0.7 10*3/uL (1.4-4.0); Lymphocytes % 9.5 % (21.2-54.2); Mean Corpuscular HGB Conc 29.7 GM/DL (32-36); Mean Corpuscular Hemoglobin 28 PG (27-34); Monocytes # 0.4 10*3/uL (0.11-0.8); Monocytes % 5.6 % (1.7-12.7); Neutrophils # 5.9 10*3/uL (1.4-7.4); Neutrophils % 79.4 % (38.7-73.9); Platelet Count 261 T/CUMM (130-400); Red Cell Distribution Width 17.1 % (9.3-17.3); White Blood Count 7.5 T/CUMM (4-12)
[2018-05-31 02:22] LABS: PT Patient Result 10.5 SECS
[2018-05-31 02:39] LABS: Alanine Aminotransferase 24 U/L (16-61); Albumin 3.2 G/DL (3.4-5.0); Alkaline Phosphatase 127 U/L (45-117); Aspartate Amino Transferase 24 U/L (0-37); Blood Urea Nitrogen 27 MG/DL (7-18); Calcium 8.4 MG/DL (8.5-10.1); Glucose 208 MG/DL (74-106); Osmolality,Calculated 296.8 MOS/KG (273-304); Potassium 4.5 MMOL/L (3.5-5.1); Sodium 144 MMOL/L (136-145); Total Protein 7.4 G/DL (6.4-8.3)
[2018-05-31 02:47] LABS: Apearance,Urine Slightly Hazy (Clear); Bacteria,Urine Moderate /HPF (Few); Bilirubin,Urine Negative (Negative); Blood, Urine Small mg/dL (Negative); Glucose,Urine (UA) 50 mg/dL (Negative); Ketones,Urine Negative (Negative); Nitrite,Urine Positive (Negative); Protein,Urine Negative; RBC,Urine 5 /HPF (0-4); Squamous Epithelial Cell,Urine Occasional /HPF (0-10); Urine Color Yellow (Yellow); Urine Specific Gravity 1.013 (1.001-1.035); Urine Urobilinogen < 2.0 EU/DL (0.2-1.0); WBC,Urine 122 /HPF (0-6)
[2018-05-31] MEDS ORDERED: PIPERACILLIN/TAZOBACTAM 3,375 MG in SODIUM CHLORIDE 0.9% 100 ML IV ONE (03:17)
[2018-05-31] MEDS ORDERED: ACETAMINOPHEN 325 MG TABLET PO PRN (04:29)
[2018-05-31] MEDS ORDERED: GLUCAGON 1 MG VIAL IM PRN (04:29)
[2018-05-31] MEDS ORDERED: DEXTROSE 50% 25 GM/50 ML VIAL IV PRN (04:29)
[2018-05-31] MEDS ORDERED: ONDANSETRON 4 MG/2 ML VIAL IV PRN (04:29)
[2018-05-31 07:15] LABS: Basophils % 0.3 % (0.0-0.8); Eosinophils # 0.2 10*3/uL (0.0-0.87); Eosinophils % 2.9 % (0.00-10.9); Hematocrit 23.5 VOL% (42.0-52.0); Hemoglobin 7.1 GM/DL (14.0-18.0); Immature Granulocytes % 0.4 %; Immature Granulocytes Absolute 0.03 #; Lymphocytes # 0.9 10*3/uL (1.4-4.0); Lymphocytes % 13.3 % (21.2-54.2); Mean Corpuscular HGB Conc 30.2 GM/DL (32-36); Mean Corpuscular Hemoglobin 27 PG (27-34); Mean Platelet Volume 10.3 FL (9.6-12.0); Monocytes # 0.5 10*3/uL (0.11-0.8); Neutrophils # 5.2 10*3/uL (1.4-7.4); Neutrophils % 76.1 % (38.7-73.9); Platelet Count 245 T/CUMM (130-400); Red Blood Count 2.61 MC/CUMM (3.8-5.5); White Blood Count 6.9 T/CUMM (4-12)
[2018-05-31] MEDS: LEVOFLOXACIN INJ 500 MG in PREMIX 1 EACH IV SCH (07:17)
[2018-05-31 07:52] LABS: Risk Ratio 2.2; VLDL CHOLESTEROL 11.8 MG/DL
[2018-05-31 08:01] LABS: Folate 8.4 NG/ML (5.4-24.0); Vitamin B12 445 PG/ML (211-911)
[2018-05-31 08:18] LABS: % Iron Saturation 5.6 % (18-50)
[2018-05-31 08:30] LABS: Sedimentation Rate-Westergren 95 MM/HR (0-20)
[2018-05-31] MEDS: INSULIN REGULAR 100 UNIT/ML SUBCUT SCH ×4 (09:16→20:39)
[2018-05-31] MEDS: POTASSIUM CHLORIDE 20 MEQ/15 ML UDCUP PO SCH ×2 (09:24→20:39)
[2018-05-31] MEDS: FUROSEMIDE 40 MG/4 ML VIAL IV SCH ×2 (09:25→17:23)
[2018-05-31] MEDS: DOCUSATE SODIUM 100 MG CAPSULE PO SCH ×2 (09:25→20:38)
[2018-05-31] MEDS: TAMSULOSIN 0.4 MG CAPSULE PO SCH ×2 (09:25→20:38)
[2018-05-31] MEDS: ENOXAPARIN 40 MG/0.4 ML SYRINGE SUBCUT SCH (09:25)
[2018-05-31] MEDS: DUTASTERIDE 0.5 MG CAPSULE PO SCH (09:25)
[2018-05-31] MEDS: MEMANTINE 10 MG TABLET PO SCH (09:25)
[2018-05-31] MEDS: amLODIPine 5 MG TABLET PO SCH (09:25)
[2018-05-31] MEDS: GABAPENTIN 300 MG CAPSULE PO SCH ×3 (09:26→20:38)
[2018-05-31] MEDS: METOPROLOL SUCCINATE XL 100 MG TABLET PO SCH (09:26)
[2018-05-31] MEDS: LINACLOTIDE 145 MCG CAPSULE PO SCH (09:26)
[2018-05-31 12:06] LABS: Hemoglobin A1 (Alkaline) 97.7 % (96.5-98.5); Hemoglobin A2 (Alkaline) 2.3 % (1.5-3.5)
[2018-05-31] MEDS ORDERED: SODIUM CHLORIDE 0.9% 1,000 ML IV PRN (14:12)
[2018-05-31] MEDS: ATORVASTATIN 40 MG TABLET PO SCH (20:38)
[2018-05-31] MEDS: DONEPEZIL 10 MG TABLET PO SCH (20:38)
[2018-06-01 03:18] LABS: Hematocrit 27.1 VOL% (42.0-52.0); Hemoglobin 8.4 GM/DL (14.0-18.0)
[2018-06-01 03:19] LABS: Basophils % 0.4 % (0.0-0.8); Eosinophils # 0.4 10*3/uL (0.0-0.87); Eosinophils % 6.2 % (0.00-10.9); Hematocrit 27.1 VOL% (42.0-52.0); Hemoglobin 8.3 GM/DL (14.0-18.0); Immature Granulocytes % 0.2 %; Immature Granulocytes Absolute 0.01 #; Lymphocytes # 1.4 10*3/uL (1.4-4.0); Mean Corpuscular HGB Conc 30.6 GM/DL (32-36); Mean Corpuscular Hemoglobin 28 PG (27-34); Mean Corpuscular Volume 89.7 FL (87-102); Mean Platelet Volume 10.1 FL (9.6-12.0); Monocytes # 0.6 10*3/uL (0.11-0.8); Monocytes % 11.2 % (1.7-12.7); Neutrophils # 3.2 10*3/uL (1.4-7.4); Platelet Count 226 T/CUMM (130-400); Red Blood Count 3.02 MC/CUMM (3.8-5.5); White Blood Count 5.6 T/CUMM (4-12)
[2018-06-01 03:33] LABS: Calcium 8.3 MG/DL (8.5-10.1); Osmolality,Calculated 294.7 MOS/KG (273-304); Potassium 3.7 MMOL/L (3.5-5.1)
[2018-06-01] MEDS: LEVOFLOXACIN INJ 500 MG in PREMIX 1 EACH IV SCH (05:06)
[2018-06-01] MEDS ORDERED: LIDOCAINE 100 MG/5 ML SYRINGE ONE (09:09)
[2018-06-01] MEDS ORDERED: PROPOFOL 200 MG/20 ML VIAL IV ONE (09:09)
[2018-06-01] MEDS: PANTOPRAZOLE 40 MG VIAL IV SCH ×2 (10:06→23:09)
[2018-06-01] MEDS: BISACODYL 5 MG TABLET PO SCH ×3 (10:07→23:09)
[2018-06-01] MEDS: TAMSULOSIN 0.4 MG CAPSULE PO SCH ×3 (10:07→22:15)
[2018-06-01] MEDS: FUROSEMIDE 40 MG/4 ML VIAL IV SCH ×2 (10:07→15:32)
[2018-06-01] MEDS: ENOXAPARIN 40 MG/0.4 ML SYRINGE SUBCUT SCH (10:08)
[2018-06-01] MEDS: MEMANTINE 10 MG TABLET PO SCH (10:08)
[2018-06-01] MEDS: METOPROLOL SUCCINATE XL 100 MG TABLET PO SCH (10:08)
[2018-06-01] MEDS: DUTASTERIDE 0.5 MG CAPSULE PO SCH (10:08)
[2018-06-01] MEDS: GABAPENTIN 300 MG CAPSULE PO SCH ×3 (10:08→22:15)
[2018-06-01] MEDS: amLODIPine 5 MG TABLET PO SCH (10:08)
[2018-06-01] MEDS: DOCUSATE SODIUM 100 MG CAPSULE PO SCH ×2 (10:09→22:14)
[2018-06-01] MEDS: POTASSIUM CHLORIDE 20 MEQ/15 ML UDCUP PO SCH ×2 (10:09→22:16)
[2018-06-01] MEDS: INSULIN REGULAR 100 UNIT/ML SUBCUT SCH ×4 (10:09→22:15)
[2018-06-01] MEDS: LINACLOTIDE 145 MCG CAPSULE PO SCH (10:11)
[2018-06-01] MEDS ORDERED: SODIUM CHLORIDE 0.9% 1,000 ML IV PRN ×2 (10:41→11:50)
[2018-06-01] MEDS ORDERED: POLYETHYLENE GLYCOL POWDER 255 GM BOTTLE PO ONE (18:00)
[2018-06-01] MEDS: ATORVASTATIN 40 MG TABLET PO SCH (22:14)
[2018-06-01] MEDS: DONEPEZIL 10 MG TABLET PO SCH (22:14)
[2018-06-02 03:26] LABS: Basophils % 0.6 % (0.0-0.8); Eosinophils # 0.5 10*3/uL (0.0-0.87); Eosinophils % 6.5 % (0.00-10.9); Hematocrit 34.3 VOL% (42.0-52.0); Hematocrit 34.9 VOL% (42.0-52.0); Hemoglobin 11.3 GM/DL (14.0-18.0); Immature Granulocytes % 0.3 %; Immature Granulocytes Absolute 0.02 #; Lymphocytes % 13.8 % (21.2-54.2); Mean Corpuscular HGB Conc 32.4 GM/DL (32-36); Mean Corpuscular Hemoglobin 29 PG (27-34); Mean Corpuscular Volume 87.9 FL (87-102); Mean Platelet Volume 9.2 FL (9.6-12.0); Monocytes # 0.8 10*3/uL (0.11-0.8); Monocytes % 11.2 % (1.7-12.7); Neutrophils # 4.9 10*3/uL (1.4-7.4); Neutrophils % 67.6 % (38.7-73.9); Platelet Count 217 T/CUMM (130-400); Red Blood Count 3.97 MC/CUMM (3.8-5.5); Red Cell Distribution Width 15.6 % (9.3-17.3); White Blood Count 7.2 T/CUMM (4-12)
[2018-06-02 03:27] LABS: Hemoglobin 11.3 GM/DL (14.0-18.0)
[2018-06-02] MEDS: LEVOFLOXACIN INJ 500 MG in PREMIX 1 EACH IV SCH (06:10)
[2018-06-02] MEDS: INSULIN REGULAR 100 UNIT/ML SUBCUT SCH ×2 (07:30→18:24)
[2018-06-02] MEDS: ENOXAPARIN 40 MG/0.4 ML SYRINGE SUBCUT SCH (09:00)
[2018-06-02] MEDS: LINACLOTIDE 145 MCG CAPSULE PO SCH (09:00)
[2018-06-02] MEDS: DOCUSATE SODIUM 100 MG CAPSULE PO SCH ×2 (09:00→21:23)
[2018-06-02] MEDS ORDERED: LIDOCAINE 1% 5 ML VIAL ONE (09:12)
[2018-06-02] MEDS ORDERED: PROPOFOL 200 MG/20 ML VIAL IV ONE (09:12)
[2018-06-02 12:56] LABS: Calcium 8.8 MG/DL (8.5-10.1); Osmolality,Calculated 283.3 MOS/KG (273-304); Potassium 3.3 MMOL/L (3.5-5.1)
[2018-06-02] MEDS ORDERED: MAGNESIUM SULF RIDER 4 GM in PREMIX 1 EACH IV PRN (15:32)
[2018-06-02] MEDS ORDERED: POTASSIUM CHLORIDE 20 MEQ TABLET PO ONE (15:32)
[2018-06-02] MEDS ORDERED: MAGNESIUM SULF RIDER 2 GM in PREMIX 1 EACH IV PRN (15:32)
[2018-06-02] MEDS: METOPROLOL SUCCINATE XL 100 MG TABLET PO SCH (18:16)
[2018-06-02] MEDS: MEMANTINE 10 MG TABLET PO SCH (18:16)
[2018-06-02] MEDS: DUTASTERIDE 0.5 MG CAPSULE PO SCH (18:16)
[2018-06-02] MEDS: TAMSULOSIN 0.4 MG CAPSULE PO SCH ×3 (18:17→21:23)
[2018-06-02] MEDS: GABAPENTIN 300 MG CAPSULE PO SCH ×3 (18:17→21:23)
[2018-06-02] MEDS: PANTOPRAZOLE 40 MG VIAL IV SCH ×2 (18:18→21:27)
[2018-06-02] MEDS: POTASSIUM CHLORIDE 20 MEQ/15 ML UDCUP PO SCH ×2 (18:18→21:23)
[2018-06-02] MEDS: DONEPEZIL 10 MG TABLET PO SCH (21:23)
[2018-06-02] MEDS: ATORVASTATIN 40 MG TABLET PO SCH (21:25)
[2018-06-03] MEDS: INSULIN REGULAR 100 UNIT/ML SUBCUT SCH ×3 (00:33→12:19)
[2018-06-03] MEDS: FUROSEMIDE 40 MG/4 ML VIAL IV SCH (05:06)
[2018-06-03] MEDS: amLODIPine 5 MG TABLET PO SCH (05:07)
[2018-06-03] MEDS: LEVOFLOXACIN INJ 500 MG in PREMIX 1 EACH IV SCH (06:18)
[2018-06-03 07:03] LABS: Basophils % 0.4 % (0.0-0.8); Eosinophils # 0.4 10*3/uL (0.0-0.87); Eosinophils % 5.1 % (0.00-10.9); Hematocrit 36.6 VOL% (42.0-52.0); Hemoglobin 11.7 GM/DL (14.0-18.0); Immature Granulocytes % 0.5 %; Immature Granulocytes Absolute 0.04 #; Lymphocytes # 1.5 10*3/uL (1.4-4.0); Lymphocytes % 18.3 % (21.2-54.2); Mean Corpuscular Hemoglobin 28 PG (27-34); Mean Corpuscular Volume 88.2 FL (87-102); Monocytes % 11.6 % (1.7-12.7); Neutrophils # 5.3 10*3/uL (1.4-7.4); Neutrophils % 64.1 % (38.7-73.9); Platelet Count 218 T/CUMM (130-400); Red Blood Count 4.15 MC/CUMM (3.8-5.5); Red Cell Distribution Width 15.3 % (9.3-17.3); White Blood Count 8.2 T/CUMM (4-12)
[2018-06-03 07:20] LABS: Calcium 8.5 MG/DL (8.5-10.1); Osmolality,Calculated 286.1 MOS/KG (273-304); Potassium 3.9 MMOL/L (3.5-5.1)
[2018-06-03] MEDS ORDERED: FUROSEMIDE 40 MG TABLET PO SCH (09:00)
[2018-06-03] MEDS ORDERED: amLODIPine 10 MG TABLET PO SCH (09:00)
[2018-06-03] MEDS: DOCUSATE SODIUM 100 MG CAPSULE PO SCH (09:40)
[2018-06-03] MEDS: DUTASTERIDE 0.5 MG CAPSULE PO SCH (09:40)
[2018-06-03] MEDS: PANTOPRAZOLE 40 MG VIAL IV SCH (09:41)
[2018-06-03] MEDS: TAMSULOSIN 0.4 MG CAPSULE PO SCH ×2 (09:41→11:08)
[2018-06-03] MEDS: GABAPENTIN 300 MG CAPSULE PO SCH (09:41)
[2018-06-03] MEDS: ENOXAPARIN 40 MG/0.4 ML SYRINGE SUBCUT SCH (09:42)
[2018-06-03] MEDS: POTASSIUM CHLORIDE 20 MEQ/15 ML UDCUP PO SCH (09:42)
[2018-06-03] MEDS: METOPROLOL SUCCINATE XL 100 MG TABLET PO SCH (09:43)
[2018-06-03] MEDS: MEMANTINE 10 MG TABLET PO SCH (10:30)
[2018-06-03] MEDS: LINACLOTIDE 145 MCG CAPSULE PO SCH (11:57)
[2018-06-03 21:01] VITALS: BP 160/77
== END 2018-06-03 14:47 | disposition swing bed (61) | DRG 291 ==
LOC: EDBD → EDUNIT# → N.ED 01:19 → SUATTDRO 04:24 → N.EDINP 04:24 → N.5E 04:45
PROVIDERS: ADMIT Internal Medicine; ATTEND Internal Medicine

== ENCOUNTER 2018-07-30 18:36 | Inpatient (IN) ==
[2018-07-30] MEDS ORDERED: SODIUM CHLORIDE 0.9% 500 ML IV STA (19:05)
[2018-07-30] MEDS ORDERED: ONDANSETRON 4 MG/2 ML VIAL IV STA (19:05)
[2018-07-30 19:50] LABS: Basophils % 0.6 % (0.0-0.8); Eosinophils # 0.2 10*3/uL (0.0-0.87); Eosinophils % 2.7 % (0.00-10.9); Hematocrit 36.4 VOL% (42.0-52.0); Hemoglobin 11.5 GM/DL (14.0-18.0); Immature Granulocytes % 0.3 %; Immature Granulocytes Absolute 0.02 #; Lymphocytes # 1.3 10*3/uL (1.4-4.0); Lymphocytes % 21.4 % (21.2-54.2); Mean Corpuscular HGB Conc 31.6 GM/DL (32-36); Mean Corpuscular Hemoglobin 27 PG (27-34); Mean Corpuscular Volume 85.6 FL (87-102); Mean Platelet Volume 10.2 FL (9.6-12.0); Monocytes # 0.5 10*3/uL (0.11-0.8); Monocytes % 7.2 % (1.7-12.7); Neutrophils # 4.2 10*3/uL (1.4-7.4); Neutrophils % 67.8 % (38.7-73.9); Platelet Count 204 T/CUMM (130-400); Red Blood Count 4.25 MC/CUMM (3.8-5.5); Red Cell Distribution Width 14.3 % (9.3-17.3); White Blood Count 6.3 T/CUMM (4-12)
[2018-07-30 20:05] LABS: Apearance,Urine CLOUDY (Clear); Bacteria,Urine Moderate /HPF (Few); Bilirubin,Urine Negative (Negative); Blood, Urine Small mg/dL (Negative); Glucose,Urine (UA) Negative (Negative); Ketones,Urine Negative (Negative); Mucus,Urine Occasional /LPF (Occasional); Nitrite,Urine Negative (Negative); Protein,Urine Negative; RBC,Urine 5 /HPF (0-4); Urine Color Yellow (Yellow); Urine Specific Gravity 1.009 (1.001-1.035); Urine Urobilinogen < 2.0 EU/DL (0.2-1.0); WBC,Urine 159 /HPF (0-6)
[2018-07-30] MEDS ORDERED: cefTRIAXone 1,000 MG in SODIUM CHLORIDE 0.9% 100 ML IV STA (20:08)
[2018-07-30 20:21] LABS: Alanine Aminotransferase 14 U/L (16-61); Alkaline Phosphatase 144 U/L (45-117); Amylase 86 U/L (25-115); Aspartate Amino Transferase 10 U/L (0-37); Bilirubin,Total < 0.39 MG/DL (0.2-1.0); Blood Urea Nitrogen 22 MG/DL (7-18); Calcium 8.4 MG/DL (8.5-10.1); Glucose 190 MG/DL (74-106); Osmolality,Calculated 286.4 MOS/KG (273-304); Potassium 4.1 MMOL/L (3.5-5.1); Sodium 140 MMOL/L (136-145); Total Protein 7.7 G/DL (6.4-8.3)
[2018-07-30 20:22] LABS: Troponin I 0.169 NG/ML (0.00-0.045)
[2018-07-30] MEDS ORDERED: MAGNESIUM SULF RIDER 2 GM in PREMIX 1 EACH IV STA (22:00)
[2018-07-30] MEDS ORDERED: ONDANSETRON 4 MG/2 ML VIAL IV PRN (23:15)
[2018-07-30] MEDS ORDERED: ACETAMINOPHEN 325 MG TABLET PO PRN (23:15)
[2018-07-31] MEDS: DEXTROSE 5% NACL 0.45% 1,000 ML IV SCH ×2 (01:50→23:08)
[2018-07-31 06:40] LABS: Alanine Aminotransferase 13 U/L (16-61); Albumin 2.6 G/DL (3.4-5.0); Alkaline Phosphatase 122 U/L (45-117); Aspartate Amino Transferase 9 U/L (0-37); Bilirubin,Total < 0.39 MG/DL (0.2-1.0); Blood Urea Nitrogen 19 MG/DL (7-18); Calcium 8.5 MG/DL (8.5-10.1); Cholesterol 88 MG/DL (50-200); Glucose 138 MG/DL (74-106); HDL Cholesterol 31 MG/DL (40-60); Osmolality,Calculated 284.3 MOS/KG (273-304); Potassium 3.5 MMOL/L (3.5-5.1); Risk Ratio 2.84; Sodium 141 MMOL/L (136-145); Total Protein 6.6 G/DL (6.4-8.3); Triglycerides 82 MG/DL (2-150); VLDL CHOLESTEROL 16.4 MG/DL
[2018-07-31] MEDS: POTASSIUM CHLORIDE 20 MEQ/15 ML UDCUP PO SCH ×2 (09:32→23:08)
[2018-07-31] MEDS: PANTOPRAZOLE 40 MG TABLET PO SCH (09:32)
[2018-07-31] MEDS: DOCUSATE SODIUM 100 MG CAPSULE PO SCH ×2 (09:32→23:06)
[2018-07-31] MEDS: amLODIPine 5 MG TABLET PO SCH (09:32)
[2018-07-31] MEDS: TAMSULOSIN 0.4 MG CAPSULE PO SCH (09:32)
[2018-07-31] MEDS: ENOXAPARIN 40 MG/0.4 ML SYRINGE SUBCUT SCH (09:32)
[2018-07-31] MEDS: METOPROLOL SUCCINATE XL 100 MG TABLET PO SCH (09:32)
[2018-07-31] MEDS: FUROSEMIDE 40 MG TABLET PO SCH (09:33)
[2018-07-31] MEDS ORDERED: LOPERAMIDE 0.2 MG/ML 30 ML/BOTTLE PO PRN (14:50)
[2018-07-31] MEDS: cefTRIAXone 1,000 MG in SYRINGE 1 EACH IV SCH (23:06)
[2018-07-31] MEDS: ATORVASTATIN 40 MG TABLET PO SCH (23:06)
[2018-07-31] MEDS: INSULIN GLARGINE 100 UNIT/ML SUBCUT SCH (23:07)
[2018-08-01 07:12] LABS: Basophils % 0.3 % (0.0-0.8); Eosinophils # 0.2 10*3/uL (0.0-0.87); Eosinophils % 2.5 % (0.00-10.9); Hematocrit 33.1 VOL% (42.0-52.0); Hemoglobin 10.9 GM/DL (14.0-18.0); Immature Granulocytes % 0.4 %; Immature Granulocytes Absolute 0.03 #; Lymphocytes % 14.7 % (21.2-54.2); Mean Corpuscular HGB Conc 32.9 GM/DL (32-36); Mean Corpuscular Hemoglobin 27 PG (27-34); Mean Corpuscular Volume 83.2 FL (87-102); Mean Platelet Volume 10.5 FL (9.6-12.0); Monocytes # 0.4 10*3/uL (0.11-0.8); Monocytes % 6.1 % (1.7-12.7); Neutrophils # 5.2 10*3/uL (1.4-7.4); Platelet Count 230 T/CUMM (130-400); Red Blood Count 3.98 MC/CUMM (3.8-5.5); Red Cell Distribution Width 13.8 % (9.3-17.3); White Blood Count 6.9 T/CUMM (4-12)
[2018-08-01 07:26] LABS: Calcium 8.9 MG/DL (8.5-10.1); Osmolality,Calculated 277.7 MOS/KG (273-304); Potassium 4.1 MMOL/L (3.5-5.1)
[2018-08-01] MEDS: PANTOPRAZOLE 40 MG TABLET PO SCH (09:15)
[2018-08-01] MEDS: TAMSULOSIN 0.4 MG CAPSULE PO SCH (09:15)
[2018-08-01] MEDS: POTASSIUM CHLORIDE 20 MEQ/15 ML UDCUP PO SCH ×2 (09:15→21:56)
[2018-08-01] MEDS: ENOXAPARIN 40 MG/0.4 ML SYRINGE SUBCUT SCH (09:15)
[2018-08-01] MEDS: METOPROLOL SUCCINATE XL 100 MG TABLET PO SCH (09:15)
[2018-08-01] MEDS: amLODIPine 5 MG TABLET PO SCH (09:15)
[2018-08-01] MEDS: DOCUSATE SODIUM 100 MG CAPSULE PO SCH ×3 (09:15→21:56)
[2018-08-01] MEDS: FUROSEMIDE 40 MG TABLET PO SCH (09:15)
[2018-08-01] MEDS: GABAPENTIN 300 MG CAPSULE PO SCH ×2 (14:38→21:56)
[2018-08-01] MEDS ORDERED: metFORMIN 500 MG TABLET PO SCH (21:00)
[2018-08-01] MEDS ORDERED: DONEPEZIL 10 MG TABLET PO SCH (21:00)
[2018-08-01] MEDS: cefTRIAXone 1,000 MG in SYRINGE 1 EACH IV SCH (21:56)
[2018-08-01] MEDS: ATORVASTATIN 40 MG TABLET PO SCH (21:56)
[2018-08-01] MEDS: INSULIN GLARGINE 100 UNIT/ML SUBCUT SCH (21:56)
[2018-08-01] MEDS: DEXTROSE 5% NACL 0.45% 1,000 ML IV SCH (21:57)
[2018-08-02] MEDS ORDERED: metFORMIN 500 MG TABLET PO SCH (07:34)
[2018-08-02 07:36] VITALS: BP 151/68
[2018-08-02] MEDS ORDERED: LISINOPRIL 10 MG TABLET PO SCH (09:00)
[2018-08-02] MEDS ORDERED: CIPROFLOXACIN 500 MG TABLET PO SCH (09:00)
[2018-08-02] MEDS ORDERED: DUTASTERIDE 0.5 MG CAPSULE PO SCH (09:00)
[2018-08-02] MEDS ORDERED: MEMANTINE 10 MG TABLET PO SCH (09:00)
[2018-08-02] MEDS: FUROSEMIDE 40 MG TABLET PO SCH (09:20)
[2018-08-02] MEDS: POTASSIUM CHLORIDE 20 MEQ/15 ML UDCUP PO SCH (09:20)
[2018-08-02] MEDS: ENOXAPARIN 40 MG/0.4 ML SYRINGE SUBCUT SCH (09:20)
[2018-08-02] MEDS: TAMSULOSIN 0.4 MG CAPSULE PO SCH (09:20)
[2018-08-02] MEDS: METOPROLOL SUCCINATE XL 100 MG TABLET PO SCH (09:20)
[2018-08-02] MEDS: amLODIPine 5 MG TABLET PO SCH (09:20)
[2018-08-02] MEDS: GABAPENTIN 300 MG CAPSULE PO SCH (09:20)
[2018-08-02] MEDS: PANTOPRAZOLE 40 MG TABLET PO SCH (09:20)
[2018-08-02] MEDS: DOCUSATE SODIUM 100 MG CAPSULE PO SCH (09:52)
[2018-08-03 17:51] LABS: Adenovirus F40/41 Negative (Negative); Astrovirus Negative (Negative); Cryptosporidium species Negative (Negative); Cyclospora cayetanensis Negative (Negative); Entamoeba histolytica Negative (Negative); Enteropathogenic E.coli (EPEC) Negative (Negative); Enterotoxigenic E. coli (ETEC) Negative (Negative); Norovirus GI/GII Negative (Negative); Plesiomonas shigelloides Negative (Negative); Salmonella species Negative (Negative); Sapovirus Negative (Negative); Shiga toxin producing E. coli Negative (Negative); Shigella/Enteroinvasive E.coli Negative (Negative); Specimen Source STOOL; Vibrio cholerae Negative (Negative); Yersinia enterocolitica Negative (Negative)
== END 2018-08-02 11:20 | disposition home health service (06) | DRG 690 ==
LOC: N.ED 18:36 → SUATTDRO 23:14 → N.EDINP 23:14 → N.5E 23:39
PROVIDERS: ADMIT Internal Medicine

== ENCOUNTER 2018-11-04 17:59 | Inpatient (IN) ==
[2018-11-04] MEDS ORDERED: ALBUTEROL/IPRATROPIUM 3 ML NEB RESP TX STA (18:10)
[2018-11-04] MEDS ORDERED: FUROSEMIDE 100 MG/10 ML VIAL IV STA (18:10)
[2018-11-04] MEDS ORDERED: ONDANSETRON 4 MG/2 ML VIAL IV STA (18:10)
[2018-11-04 19:45] LABS: Apearance,Urine CLOUDY (Clear); Bacteria,Urine Many /HPF (Few); Bilirubin,Urine Negative (Negative); Blood, Urine Small mg/dL (Negative); Glucose,Urine (UA) Negative (Negative); Ketones,Urine Negative (Negative); Mucus,Urine Occasional /LPF (Occasional); Nitrite,Urine Negative (Negative); Protein,Urine Negative; RBC,Urine 19 /HPF (0-4); Urine Color Yellow (Yellow); Urine Specific Gravity 1.011 (1.001-1.035); Urine Urobilinogen < 2.0 EU/DL (0.2-1.0); WBC,Urine 159 /HPF (0-6)
[2018-11-04] MEDS ORDERED: LEVOFLOXACIN INJ 750 MG in PREMIX 1 EACH IV STA (19:52)
[2018-11-04 20:50] LABS: Basophils % 0.2 % (0.0-0.8); Eosinophils # 0.1 10*3/uL (0.0-0.87); Eosinophils % 1.5 % (0.00-10.9); Hematocrit 27.3 VOL% (42.0-52.0); Hemoglobin 8.3 GM/DL (14.0-18.0); Immature Granulocytes % 0.2 %; Immature Granulocytes Absolute 0.02 #; Lymphocytes # 1.2 10*3/uL (1.4-4.0); Mean Corpuscular HGB Conc 30.4 GM/DL (32-36); Mean Corpuscular Hemoglobin 27 PG (27-34); Mean Corpuscular Volume 88.1 FL (87-102); Mean Platelet Volume 11.3 FL (9.6-12.0); Monocytes # 0.8 10*3/uL (0.11-0.8); Monocytes % 9.3 % (1.7-12.7); Neutrophils # 6.3 10*3/uL (1.4-7.4); Neutrophils % 74.8 % (38.7-73.9); Platelet Count 199 T/CUMM (130-400); Red Cell Distribution Width 14.8 % (9.3-17.3); White Blood Count 8.5 T/CUMM (4-12)
[2018-11-04 21:02] LABS: Alanine Aminotransferase 15 U/L (16-61); Albumin 2.9 G/DL (3.4-5.0); Alkaline Phosphatase 111 U/L (45-117); Aspartate Amino Transferase 28 U/L (0-37); Blood Urea Nitrogen 72 MG/DL (7-18); CKMB % 1.6 %; Calcium 8.5 MG/DL (8.5-10.1); Glucose 141 MG/DL (74-106); Potassium 5.9 MMOL/L (3.5-5.1); Sodium 136 MMOL/L (136-145); Total Protein 7.3 G/DL (6.4-8.3); Troponin I < 0.015 NG/ML (0.00-0.045)
[2018-11-04 21:04] LABS: PT Patient Result 10.9 SECS; Partial Thromboplastin Time 25.2 SECS (0-40)
[2018-11-04] MEDS ORDERED: ALBUTEROL NEB SOLN 5 MG/ML 20 ML/BOTTLE CONT NEB STA (21:11)
[2018-11-04] MEDS ORDERED: CALCIUM GLUCONATE 1,000 MG in SODIUM CHLORIDE 0.9% 100 ML IV ONE (21:11)
[2018-11-04] MEDS ORDERED: GLUCAGON 1 MG VIAL IM PRN (22:55)
[2018-11-04] MEDS ORDERED: ONDANSETRON 4 MG/2 ML VIAL IV PRN (22:55)
[2018-11-04] MEDS ORDERED: ACETAMINOPHEN 325 MG TABLET PO PRN (22:55)
[2018-11-04] MEDS ORDERED: DEXTROSE 50% 25 GM/50 ML SYRINGE IV PRN (22:55)
[2018-11-04] MEDS ORDERED: ALBUTEROL/IPRATROPIUM 3 ML NEB RESP TX PRN (23:05)
[2018-11-04] MEDS: SODIUM POLYSTYRENE SULFATE 15 GM/60 ML BOTTLE PO SCH (23:50)
[2018-11-05] MEDS: SODIUM CHLORIDE 0.9% 1,000 ML IV SCH ×2 (00:45→16:15)
[2018-11-05] MEDS: MEROPENEM 1,000 MG in SODIUM CHLORIDE 0.9% 100 ML IV SCH ×2 (00:45→09:56)
[2018-11-05] MEDS: DONEPEZIL 10 MG TABLET PO SCH ×4 (02:34→21:20)
[2018-11-05] MEDS: PANTOPRAZOLE 40 MG TABLET PO SCH ×5 (02:34→21:20)
[2018-11-05] MEDS: SODIUM POLYSTYRENE SULFATE 15 GM/60 ML BOTTLE PO SCH ×3 (02:35→16:20)
[2018-11-05] MEDS: ALBUTEROL/IPRATROPIUM 3 ML NEB RESP TX SCH ×3 (05:56→12:48)
[2018-11-05 05:59] LABS: Basophils % 0.4 % (0.0-0.8); Eosinophils # 0.1 10*3/uL (0.0-0.87); Hematocrit 26.1 VOL% (42.0-52.0); Immature Granulocytes % 0.3 %; Immature Granulocytes Absolute 0.02 #; Lymphocytes % 14.6 % (21.2-54.2); Mean Corpuscular HGB Conc 30.7 GM/DL (32-36); Mean Corpuscular Hemoglobin 27 PG (27-34); Mean Corpuscular Volume 87.6 FL (87-102); Mean Platelet Volume 10.3 FL (9.6-12.0); Monocytes # 0.7 10*3/uL (0.11-0.8); Monocytes % 10.4 % (1.7-12.7); Neutrophils # 5.1 10*3/uL (1.4-7.4); Neutrophils % 72.3 % (38.7-73.9); Platelet Count 181 T/CUMM (130-400); Red Blood Count 2.98 MC/CUMM (3.8-5.5); Red Cell Distribution Width 14.6 % (9.3-17.3)
[2018-11-05 06:21] LABS: Calcium 8.9 MG/DL (8.5-10.1); Osmolality,Calculated 295.7 MOS/KG (273-304); Potassium 4.7 MMOL/L (3.5-5.1)
[2018-11-05] MEDS: INSULIN REGULAR 100 UNIT/ML SUBCUT SCH ×4 (09:49→20:17)
[2018-11-05] MEDS: METOPROLOL SUCCINATE XL 100 MG TABLET PO SCH (09:55)
[2018-11-05] MEDS: amLODIPine 5 MG TABLET PO SCH (09:55)
[2018-11-05] MEDS: GABAPENTIN 300 MG CAPSULE PO SCH ×5 (09:55→21:20)
[2018-11-05] MEDS: DUTASTERIDE 0.5 MG CAPSULE PO SCH (09:55)
[2018-11-05] MEDS: MEMANTINE 10 MG TABLET PO SCH (09:55)
[2018-11-05] MEDS: ATORVASTATIN 40 MG TABLET PO SCH (09:56)
[2018-11-05] MEDS: glipiZIDE 10 MG TABLET PO SCH ×2 (09:56→16:16)
[2018-11-05] MEDS: TAMSULOSIN 0.4 MG CAPSULE PO SCH (09:56)
[2018-11-05] MEDS: LINACLOTIDE 145 MCG CAPSULE PO SCH (09:56)
[2018-11-05] MEDS: glipiZIDE 5 MG TABLET PO SCH (17:53)
[2018-11-05] MEDS: MEROPENEM 500 MG in SODIUM CHLORIDE 0.9% 100 ML IV SCH (17:54)
[2018-11-05] MEDS: DOCUSATE SODIUM 100 MG CAPSULE PO SCH ×3 (20:16→21:20)
[2018-11-06] MEDS: MEROPENEM 500 MG in SODIUM CHLORIDE 0.9% 100 ML IV SCH ×2 (04:20→17:00)
[2018-11-06 06:24] LABS: Basophils % 0.2 % (0.0-0.8); Eosinophils # 0.2 10*3/uL (0.0-0.87); Eosinophils % 2.1 % (0.00-10.9); Hemoglobin 8.6 GM/DL (14.0-18.0); Immature Granulocytes % 0.2 %; Immature Granulocytes Absolute 0.02 #; Lymphocytes # 0.8 10*3/uL (1.4-4.0); Lymphocytes % 10.2 % (21.2-54.2); Mean Corpuscular HGB Conc 30.7 GM/DL (32-36); Mean Corpuscular Hemoglobin 27 PG (27-34); Mean Corpuscular Volume 86.4 FL (87-102); Mean Platelet Volume 10.7 FL (9.6-12.0); Monocytes # 0.8 10*3/uL (0.11-0.8); Monocytes % 9.7 % (1.7-12.7); Neutrophils # 6.4 10*3/uL (1.4-7.4); Neutrophils % 77.6 % (38.7-73.9); Platelet Count 201 T/CUMM (130-400); Red Blood Count 3.24 MC/CUMM (3.8-5.5); Red Cell Distribution Width 14.4 % (9.3-17.3); White Blood Count 8.2 T/CUMM (4-12)
[2018-11-06 06:39] LABS: Calcium 8.1 MG/DL (8.5-10.1); Potassium 4.3 MMOL/L (3.5-5.1)
[2018-11-06] MEDS ORDERED: risperiDONE 1 MG TABLET PO PRN (07:52)
[2018-11-06] MEDS ORDERED: hydrALAZINE 25 MG TABLET PO PRN (07:54)
[2018-11-06] MEDS: hydrALAZINE 20 MG/1 ML VIAL IV PRN ×2 (08:22→23:21)
[2018-11-06] MEDS: SODIUM CHLORIDE 0.9% 1,000 ML IV SCH ×2 (08:46→23:20)
[2018-11-06] MEDS: INSULIN REGULAR 100 UNIT/ML SUBCUT SCH ×4 (08:49→23:14)
[2018-11-06] MEDS: HALOPERIDOL 5 MG/ML AMP IV PRN ×2 (09:35→17:01)
[2018-11-06] MEDS ORDERED: MEROPENEM 1,000 MG in SODIUM CHLORIDE 0.9% 100 ML IV SCH (10:00)
[2018-11-06] MEDS: glipiZIDE 5 MG TABLET PO SCH (11:13)
[2018-11-06] MEDS: DUTASTERIDE 0.5 MG CAPSULE PO SCH (11:13)
[2018-11-06] MEDS: TAMSULOSIN 0.4 MG CAPSULE PO SCH (11:13)
[2018-11-06] MEDS: DOCUSATE SODIUM 100 MG CAPSULE PO SCH ×2 (11:13→23:14)
[2018-11-06] MEDS: LINACLOTIDE 145 MCG CAPSULE PO SCH (11:13)
[2018-11-06] MEDS: ATORVASTATIN 40 MG TABLET PO SCH (11:14)
[2018-11-06] MEDS: PANTOPRAZOLE 40 MG TABLET PO SCH ×2 (11:14→23:14)
[2018-11-06] MEDS: MEMANTINE 10 MG TABLET PO SCH (11:14)
[2018-11-06] MEDS: GABAPENTIN 300 MG CAPSULE PO SCH ×3 (11:14→23:14)
[2018-11-06] MEDS: METOPROLOL SUCCINATE XL 100 MG TABLET PO SCH (11:14)
[2018-11-06] MEDS: amLODIPine 5 MG TABLET PO SCH (11:14)
[2018-11-06] MEDS ORDERED: MAGNESIUM SULF RIDER 4 GM in PREMIX 1 EACH IV PRN (11:57)
[2018-11-06] MEDS ORDERED: MAGNESIUM SULF RIDER 2 GM in PREMIX 1 EACH IV PRN (11:57)
[2018-11-06] MEDS: DONEPEZIL 10 MG TABLET PO SCH (23:13)
[2018-11-07] MEDS: MEROPENEM 500 MG in SODIUM CHLORIDE 0.9% 100 ML IV SCH (04:08)
[2018-11-07 05:55] LABS: Basophils % 0.2 % (0.0-0.8); Eosinophils # 0.1 10*3/uL (0.0-0.87); Eosinophils % 2.1 % (0.00-10.9); Hematocrit 26.3 VOL% (42.0-52.0); Hemoglobin 8.1 GM/DL (14.0-18.0); Immature Granulocytes % 0.2 %; Immature Granulocytes Absolute 0.01 #; Lymphocytes # 0.8 10*3/uL (1.4-4.0); Lymphocytes % 13.9 % (21.2-54.2); Mean Corpuscular HGB Conc 30.8 GM/DL (32-36); Mean Corpuscular Hemoglobin 27 PG (27-34); Mean Corpuscular Volume 85.9 FL (87-102); Mean Platelet Volume 10.3 FL (9.6-12.0); Monocytes # 0.6 10*3/uL (0.11-0.8); Monocytes % 9.6 % (1.7-12.7); Neutrophils # 4.2 10*3/uL (1.4-7.4); Platelet Count 203 T/CUMM (130-400); Red Blood Count 3.06 MC/CUMM (3.8-5.5); Red Cell Distribution Width 14.5 % (9.3-17.3); White Blood Count 5.7 T/CUMM (4-12)
[2018-11-07 06:29] LABS: Calcium 8.6 MG/DL (8.5-10.1); Osmolality,Calculated 292.7 MOS/KG (273-304); Potassium 3.5 MMOL/L (3.5-5.1)
[2018-11-07] MEDS: LINACLOTIDE 145 MCG CAPSULE PO SCH (07:30)
[2018-11-07] MEDS: hydrALAZINE 20 MG/1 ML VIAL IV PRN (07:42)
[2018-11-07] MEDS: INSULIN REGULAR 100 UNIT/ML SUBCUT SCH ×4 (08:37→20:38)
[2018-11-07] MEDS: ATORVASTATIN 40 MG TABLET PO SCH (09:45)
[2018-11-07] MEDS: DOCUSATE SODIUM 100 MG CAPSULE PO SCH ×2 (09:45→20:43)
[2018-11-07] MEDS: MEMANTINE 10 MG TABLET PO SCH (09:45)
[2018-11-07] MEDS: GABAPENTIN 300 MG CAPSULE PO SCH ×3 (09:45→20:43)
[2018-11-07] MEDS: PANTOPRAZOLE 40 MG TABLET PO SCH ×2 (09:45→20:43)
[2018-11-07] MEDS: DUTASTERIDE 0.5 MG CAPSULE PO SCH (09:45)
[2018-11-07] MEDS: TAMSULOSIN 0.4 MG CAPSULE PO SCH (09:45)
[2018-11-07] MEDS: GLIMEPIRIDE 2 MG TABLET PO SCH (09:46)
[2018-11-07] MEDS: METOPROLOL SUCCINATE XL 100 MG TABLET PO SCH (10:14)
[2018-11-07] MEDS: amLODIPine 5 MG TABLET PO SCH (10:14)
[2018-11-07] MEDS: LISINOPRIL 10 MG TABLET PO SCH (12:08)
[2018-11-07] MEDS: PIPERACILLIN/TAZOBACTAM 3,375 MG in SODIUM CHLORIDE 0.9% 100 ML IV SCH ×2 (12:08→20:42)
[2018-11-07] MEDS: FUROSEMIDE 40 MG TABLET PO SCH (12:08)
[2018-11-07] MEDS: SODIUM CHLORIDE 0.9% 1,000 ML IV SCH ×2 (16:25→20:47)
[2018-11-07] MEDS: DONEPEZIL 10 MG TABLET PO SCH (20:43)
[2018-11-08] MEDS: PIPERACILLIN/TAZOBACTAM 3,375 MG in SODIUM CHLORIDE 0.9% 100 ML IV SCH ×2 (04:11→12:24)
[2018-11-08 05:01] LABS: Basophils % 0.3 % (0.0-0.8); Eosinophils # 0.1 10*3/uL (0.0-0.87); Eosinophils % 1.7 % (0.00-10.9); Hematocrit 27.2 VOL% (42.0-52.0); Hemoglobin 8.6 GM/DL (14.0-18.0); Immature Granulocytes % 0.3 %; Immature Granulocytes Absolute 0.02 #; Lymphocytes % 14.4 % (21.2-54.2); Mean Corpuscular HGB Conc 31.6 GM/DL (32-36); Mean Corpuscular Hemoglobin 27 PG (27-34); Mean Platelet Volume 9.7 FL (9.6-12.0); Monocytes # 0.7 10*3/uL (0.11-0.8); Monocytes % 10.4 % (1.7-12.7); Neutrophils # 5.1 10*3/uL (1.4-7.4); Neutrophils % 72.9 % (38.7-73.9); Platelet Count 201 T/CUMM (130-400); Red Cell Distribution Width 14.2 % (9.3-17.3)
[2018-11-08 05:17] LABS: Calcium 8.3 MG/DL (8.5-10.1); Osmolality,Calculated 292.7 MOS/KG (273-304); Potassium 3.2 MMOL/L (3.5-5.1)
[2018-11-08] MEDS: hydrALAZINE 20 MG/1 ML VIAL IV PRN (05:25)
[2018-11-08] MEDS: INSULIN REGULAR 100 UNIT/ML SUBCUT SCH ×4 (07:57→21:09)
[2018-11-08] MEDS: TAMSULOSIN 0.4 MG CAPSULE PO SCH (09:43)
[2018-11-08] MEDS: LISINOPRIL 10 MG TABLET PO SCH (09:43)
[2018-11-08] MEDS: SODIUM CHLORIDE 0.9% 1,000 ML IV SCH ×2 (09:43→18:12)
[2018-11-08] MEDS: GABAPENTIN 300 MG CAPSULE PO SCH ×3 (09:43→21:09)
[2018-11-08] MEDS: DUTASTERIDE 0.5 MG CAPSULE PO SCH (09:43)
[2018-11-08] MEDS: GLIMEPIRIDE 2 MG TABLET PO SCH (09:43)
[2018-11-08] MEDS: LINACLOTIDE 145 MCG CAPSULE PO SCH (09:43)
[2018-11-08] MEDS: DOCUSATE SODIUM 100 MG CAPSULE PO SCH ×2 (09:44→21:09)
[2018-11-08] MEDS: POTASSIUM CHLORIDE 20 MEQ TABLET PO PRN ×4 (09:44→17:08)
[2018-11-08] MEDS: MEMANTINE 10 MG TABLET PO SCH (09:44)
[2018-11-08] MEDS: amLODIPine 10 MG TABLET PO SCH (09:44)
[2018-11-08] MEDS: METOPROLOL SUCCINATE XL 100 MG TABLET PO SCH (09:44)
[2018-11-08] MEDS: PANTOPRAZOLE 40 MG TABLET PO SCH ×2 (09:45→21:09)
[2018-11-08] MEDS: FUROSEMIDE 40 MG TABLET PO SCH (09:45)
[2018-11-08] MEDS: ATORVASTATIN 40 MG TABLET PO SCH (09:45)
[2018-11-08] MEDS: MEROPENEM 1,000 MG in SODIUM CHLORIDE 0.9% 100 ML IV SCH (13:55)
[2018-11-08] MEDS: DONEPEZIL 10 MG TABLET PO SCH (21:09)
[2018-11-09] MEDS: MEROPENEM 1,000 MG in SODIUM CHLORIDE 0.9% 100 ML IV SCH ×2 (02:39→13:54)
[2018-11-09] MEDS: INSULIN REGULAR 100 UNIT/ML SUBCUT SCH ×4 (07:40→21:41)
[2018-11-09] MEDS: GABAPENTIN 300 MG CAPSULE PO SCH ×3 (09:38→21:41)
[2018-11-09] MEDS: amLODIPine 10 MG TABLET PO SCH (09:38)
[2018-11-09] MEDS: PANTOPRAZOLE 40 MG TABLET PO SCH ×2 (09:38→21:41)
[2018-11-09] MEDS: DUTASTERIDE 0.5 MG CAPSULE PO SCH (09:38)
[2018-11-09] MEDS: DOCUSATE SODIUM 100 MG CAPSULE PO SCH ×2 (09:38→21:41)
[2018-11-09] MEDS: METOPROLOL SUCCINATE XL 100 MG TABLET PO SCH (09:38)
[2018-11-09] MEDS: MEMANTINE 10 MG TABLET PO SCH (09:38)
[2018-11-09] MEDS: LISINOPRIL 10 MG TABLET PO SCH (09:38)
[2018-11-09] MEDS: GLIMEPIRIDE 2 MG TABLET PO SCH (09:39)
[2018-11-09] MEDS: LINACLOTIDE 145 MCG CAPSULE PO SCH (09:39)
[2018-11-09] MEDS: ATORVASTATIN 40 MG TABLET PO SCH (09:39)
[2018-11-09] MEDS: FUROSEMIDE 40 MG TABLET PO SCH (09:39)
[2018-11-09] MEDS: TAMSULOSIN 0.4 MG CAPSULE PO SCH (09:39)
[2018-11-09] MEDS: SODIUM CHLORIDE 0.9% 1,000 ML IV SCH (13:54)
[2018-11-09] MEDS: DONEPEZIL 10 MG TABLET PO SCH (21:41)
[2018-11-10] MEDS: MEROPENEM 1,000 MG in SODIUM CHLORIDE 0.9% 100 ML IV SCH ×2 (01:45→14:12)
[2018-11-10] MEDS: SODIUM CHLORIDE 0.9% 1,000 ML IV SCH (04:36)
[2018-11-10] MEDS: INSULIN REGULAR 100 UNIT/ML SUBCUT SCH ×4 (09:07→21:58)
[2018-11-10] MEDS: DOCUSATE SODIUM 100 MG CAPSULE PO SCH ×2 (09:08→21:57)
[2018-11-10] MEDS: DUTASTERIDE 0.5 MG CAPSULE PO SCH (09:08)
[2018-11-10] MEDS: FUROSEMIDE 40 MG TABLET PO SCH (09:08)
[2018-11-10] MEDS: LISINOPRIL 10 MG TABLET PO SCH (09:08)
[2018-11-10] MEDS: GLIMEPIRIDE 2 MG TABLET PO SCH (09:09)
[2018-11-10] MEDS: amLODIPine 10 MG TABLET PO SCH (09:09)
[2018-11-10] MEDS: PANTOPRAZOLE 40 MG TABLET PO SCH ×2 (09:11→21:57)
[2018-11-10] MEDS: GABAPENTIN 300 MG CAPSULE PO SCH ×3 (09:11→21:57)
[2018-11-10] MEDS: ATORVASTATIN 40 MG TABLET PO SCH (09:11)
[2018-11-10] MEDS: MEMANTINE 10 MG TABLET PO SCH (09:11)
[2018-11-10] MEDS: LINACLOTIDE 145 MCG CAPSULE PO SCH (09:11)
[2018-11-10] MEDS: METOPROLOL SUCCINATE XL 100 MG TABLET PO SCH (09:11)
[2018-11-10] MEDS: TAMSULOSIN 0.4 MG CAPSULE PO SCH (09:11)
[2018-11-10] MEDS ORDERED: BISACODYL 5 MG TABLET PO PRN (11:00)
[2018-11-10] MEDS ORDERED: SODIUM PHOSPHATE ENEMA 133 ML BOTTLE RECTAL ONE (13:41)
[2018-11-10 14:38] LABS: Calcium 8.2 MG/DL (8.5-10.1); Osmolality,Calculated 289.3 MOS/KG (273-304)
[2018-11-10] MEDS: ALBUTEROL 2.5 MG/3 ML NEB RESP TX PRN (17:08)
[2018-11-10] MEDS: methylPREDNISolone SOD SUC 125 MG/2 ML VIAL IV SCH (18:45)
[2018-11-10 18:57] LABS: Basophils % 0.2 % (0.0-0.8); Eosinophils % 0.3 % (0.00-10.9); Hematocrit 30.4 VOL% (42.0-52.0); Hemoglobin 9.4 GM/DL (14.0-18.0); Immature Granulocytes % 0.4 %; Immature Granulocytes Absolute 0.04 #; Lymphocytes # 0.8 10*3/uL (1.4-4.0); Mean Corpuscular HGB Conc 30.9 GM/DL (32-36); Mean Corpuscular Hemoglobin 27 PG (27-34); Mean Corpuscular Volume 86.6 FL (87-102); Mean Platelet Volume 9.5 FL (9.6-12.0); Monocytes # 0.7 10*3/uL (0.11-0.8); Monocytes % 6.8 % (1.7-12.7); Neutrophils # 8.2 10*3/uL (1.4-7.4); Neutrophils % 84.3 % (38.7-73.9); Red Blood Count 3.51 MC/CUMM (3.8-5.5); Red Cell Distribution Width 14.1 % (9.3-17.3)
[2018-11-10 19:02] LABS: Platelet Count 259 T/CUMM (130-400); White Blood Count 9.8 T/CUMM (4-12)
[2018-11-10 19:24] LABS: Alanine Aminotransferase 17 U/L (16-61); Albumin 2.6 G/DL (3.4-5.0); Alkaline Phosphatase 92 U/L (45-117); Aspartate Amino Transferase 13 U/L (0-37); Bilirubin,Total < 0.39 MG/DL (0.2-1.0); Blood Urea Nitrogen 32 MG/DL (7-18); Calcium 8.5 MG/DL (8.5-10.1); Glucose 119 MG/DL (74-106); Osmolality,Calculated 290.1 MOS/KG (273-304); Potassium 3.2 MMOL/L (3.5-5.1); Sodium 142 MMOL/L (136-145); Total Protein 7.6 G/DL (6.4-8.3)
[2018-11-10] MEDS: ALBUTEROL 2.5 MG/3 ML NEB RESP TX SCH (19:55)
[2018-11-10] MEDS: DONEPEZIL 10 MG TABLET PO SCH (21:57)
[2018-11-11] MEDS: ALBUTEROL 2.5 MG/3 ML NEB RESP TX SCH ×4 (00:38→19:45)
[2018-11-11] MEDS: methylPREDNISolone SOD SUC 125 MG/2 ML VIAL IV SCH ×4 (01:10→17:17)
[2018-11-11] MEDS: SODIUM CHLORIDE 0.9% 1,000 ML IV SCH ×4 (01:10→22:08)
[2018-11-11] MEDS: MEROPENEM 1,000 MG in SODIUM CHLORIDE 0.9% 100 ML IV SCH ×2 (01:11→12:20)
[2018-11-11 06:26] LABS: Basophils % 0.1 % (0.0-0.8); Hemoglobin 9.1 GM/DL (14.0-18.0); Immature Granulocytes % 0.3 %; Immature Granulocytes Absolute 0.03 #; Lymphocytes # 0.5 10*3/uL (1.4-4.0); Lymphocytes % 4.8 % (21.2-54.2); Mean Corpuscular HGB Conc 30.3 GM/DL (32-36); Mean Corpuscular Hemoglobin 26 PG (27-34); Mean Corpuscular Volume 86.5 FL (87-102); Mean Platelet Volume 10.1 FL (9.6-12.0); Monocytes # 0.1 10*3/uL (0.11-0.8); Monocytes % 0.5 % (1.7-12.7); Neutrophils # 8.9 10*3/uL (1.4-7.4); Neutrophils % 94.3 % (38.7-73.9); Platelet Count 255 T/CUMM (130-400); Red Blood Count 3.47 MC/CUMM (3.8-5.5); Red Cell Distribution Width 14.2 % (9.3-17.3); White Blood Count 9.5 T/CUMM (4-12)
[2018-11-11 06:38] LABS: Calcium 8.4 MG/DL (8.5-10.1); Osmolality,Calculated 290.4 MOS/KG (273-304); Potassium 3.2 MMOL/L (3.5-5.1)
[2018-11-11 07:36] LABS: Hypochromasia 1+; Lymphocytes 1 % (20-55); Ovalocytes Slight; Platelet Estimate Adequate; Segmented Neutrophils 99 % (50-85); Total Cells Counted 100
[2018-11-11] MEDS: INSULIN REGULAR 100 UNIT/ML SUBCUT SCH ×4 (09:17→22:07)
[2018-11-11] MEDS: MEMANTINE 10 MG TABLET PO SCH (09:18)
[2018-11-11] MEDS: DUTASTERIDE 0.5 MG CAPSULE PO SCH (09:18)
[2018-11-11] MEDS: amLODIPine 10 MG TABLET PO SCH (09:18)
[2018-11-11] MEDS: PANTOPRAZOLE 40 MG TABLET PO SCH ×2 (09:18→22:07)
[2018-11-11] MEDS: LISINOPRIL 10 MG TABLET PO SCH (09:18)
[2018-11-11] MEDS: METOPROLOL SUCCINATE XL 100 MG TABLET PO SCH (09:18)
[2018-11-11] MEDS: GLIMEPIRIDE 2 MG TABLET PO SCH (09:18)
[2018-11-11] MEDS: ATORVASTATIN 40 MG TABLET PO SCH (09:18)
[2018-11-11] MEDS: FUROSEMIDE 40 MG TABLET PO SCH (09:19)
[2018-11-11] MEDS: GABAPENTIN 300 MG CAPSULE PO SCH (09:19)
[2018-11-11] MEDS: LINACLOTIDE 145 MCG CAPSULE PO SCH (09:19)
[2018-11-11] MEDS: DOCUSATE SODIUM 100 MG CAPSULE PO SCH ×2 (09:20→22:07)
[2018-11-11] MEDS: TAMSULOSIN 0.4 MG CAPSULE PO SCH (09:20)
[2018-11-11] MEDS: ALBUTEROL 2.5 MG/3 ML NEB RESP TX PRN (13:28)
[2018-11-11 16:51] VITALS: BP 121/60
[2018-11-11] MEDS ORDERED: NALOXONE 0.4 MG/ML VIAL ONE (19:04)
[2018-11-11 19:26] LABS: Hematocrit 29.6 VOL% (42.0-52.0); Hemoglobin 9.2 GM/DL (14.0-18.0); Immature Granulocytes % 0.4 %; Immature Granulocytes Absolute 0.05 #; Lymphocytes # 0.5 10*3/uL (1.4-4.0); Lymphocytes % 3.9 % (21.2-54.2); Mean Corpuscular HGB Conc 31.1 GM/DL (32-36); Mean Corpuscular Hemoglobin 27 PG (27-34); Mean Platelet Volume 9.6 FL (9.6-12.0); Monocytes # 0.2 10*3/uL (0.11-0.8); Monocytes % 1.4 % (1.7-12.7); Neutrophils # 13.1 10*3/uL (1.4-7.4); Neutrophils % 94.3 % (38.7-73.9); Platelet Count 260 T/CUMM (130-400); Red Blood Count 3.44 MC/CUMM (3.8-5.5); White Blood Count 13.9 T/CUMM (4-12)
[2018-11-11] MEDS ORDERED: NALOXONE 0.4 MG/ML VIAL IV ONE (19:36)
[2018-11-11 19:37] LABS: PT Patient Result 11.1 SECS; Partial Thromboplastin Time 25.8 SECS (0-40)
[2018-11-11 19:47] LABS: Alanine Aminotransferase 15 U/L (16-61); Albumin 2.3 G/DL (3.4-5.0); Alkaline Phosphatase 84 U/L (45-117); Aspartate Amino Transferase 15 U/L (0-37); Bilirubin,Total < 0.39 MG/DL (0.2-1.0); Blood Urea Nitrogen 50 MG/DL (7-18); Calcium 8.4 MG/DL (8.5-10.1); Glucose 157 MG/DL (74-106); Potassium 2.9 MMOL/L (3.5-5.1); Sodium 143 MMOL/L (136-145); Total Protein 6.7 G/DL (6.4-8.3)
[2018-11-11 20:04] LABS: Lymphocytes 4 % (20-55); Segmented Neutrophils 95 % (50-85)
[2018-11-11 20:06] LABS: Ovalocytes 1+; Platelet Estimate Normal
[2018-11-11 20:07] LABS: Total Cells Counted 100
[2018-11-11] MEDS ORDERED: POTASSIUM CHLORIDE RIDER 10 MEQ in PREMIX 1 EACH IV PRN (21:02)
[2018-11-11] MEDS: DONEPEZIL 10 MG TABLET PO SCH (22:07)
== END 2018-11-11 23:45 | disposition hospice, home (50) | DRG 682 ==
LOC: EDBD → EDUNIT# → N.ED 17:59 → SUATTDRO 22:52 → N.EDINP 22:52 → N.3E 11-05 01:26 → N.CC 11-11 20:18
PROVIDERS: ADMIT Internal Medicine; ATTEND Internal Medicine

== ENCOUNTER 2018-12-16 16:37 | Inpatient (IN) ==
[2018-12-16 17:31] LABS: Basophils % 0.5 % (0.0-0.8); Eosinophils # 0.2 10*3/uL (0.0-0.87); Hematocrit 26.6 VOL% (42.0-52.0); Hemoglobin 8.2 GM/DL (14.0-18.0); Immature Granulocytes % 0.5 %; Immature Granulocytes Absolute 0.03 #; Lymphocytes # 1.2 10*3/uL (1.4-4.0); Lymphocytes % 17.6 % (21.2-54.2); Mean Corpuscular HGB Conc 30.8 GM/DL (32-36); Mean Corpuscular Hemoglobin 26 PG (27-34); Mean Corpuscular Volume 85.3 FL (87-102); Mean Platelet Volume 9.7 FL (9.6-12.0); Monocytes # 0.5 10*3/uL (0.11-0.8); Monocytes % 7.8 % (1.7-12.7); Neutrophils # 4.7 10*3/uL (1.4-7.4); Neutrophils % 70.6 % (38.7-73.9); Platelet Count 300 T/CUMM (130-400); Red Blood Count 3.12 MC/CUMM (3.8-5.5); Red Cell Distribution Width 15.7 % (9.3-17.3); White Blood Count 6.6 T/CUMM (4-12)
[2018-12-16 17:52] LABS: Alanine Aminotransferase 14 U/L (16-61); Albumin 2.7 G/DL (3.4-5.0); Alkaline Phosphatase 109 U/L (45-117); Aspartate Amino Transferase 12 U/L (0-37); Bilirubin,Total < 0.39 MG/DL (0.2-1.0); Blood Urea Nitrogen 46 MG/DL (7-18); Calcium 9.1 MG/DL (8.5-10.1); Glucose 142 MG/DL (74-106); Osmolality,Calculated 292.4 MOS/KG (273-304); Potassium 4.7 MMOL/L (3.5-5.1); Sodium 140 MMOL/L (136-145); Total Protein 7.1 G/DL (6.4-8.3)
[2018-12-16 17:53] LABS: INR 1.1; PT Patient Result 11.4 SECS; Partial Thromboplastin Time 25.3 SECS (0-40)
[2018-12-16 17:54] LABS: Apearance,Urine CLOUDY (Clear); Bilirubin,Urine Negative (Negative); Blood, Urine Large mg/dL (Negative); Glucose,Urine (UA) Negative (Negative); Ketones,Urine Negative (Negative); Nitrite,Urine Positive (Negative); Protein,Urine Negative; RBC,Urine 28 /HPF (0-4); Squamous Epithelial Cell,Urine Occasional /HPF (0-10); Urine Color Amber (Yellow); Urine Specific Gravity 1.013 (1.001-1.035); Urine Urobilinogen < 2.0 EU/DL (0.2-1.0); WBC,Urine 913 /HPF (0-6)
[2018-12-16 17:58] LABS: Barbiturates Screen,Urine Negative (Negative); Benzodiazepines Screen,Urine Negative (Negative); Cannabinoid Screen,Urine Negative (Negative); Opiate Screen,Urine Negative (Negative); Phencyclidine Screen,Urine Negative (Negative)
[2018-12-16] MEDS ORDERED: LEVOFLOXACIN INJ 750 MG in PREMIX 1 EACH IV STA (18:11)
[2018-12-16] MEDS ORDERED: SODIUM CHLORIDE 0.9% 1,000 ML IV STA (18:12)
[2018-12-16] MEDS: INSULIN REGULAR 100 UNIT/ML SUBCUT SCH (22:59)
[2018-12-16] MEDS: INSULIN NPH 100 UNIT/ML SUBCUT SCH (23:00)
[2018-12-16] MEDS: SODIUM CHLORIDE 0.9% 1,000 ML IV SCH (23:10)
[2018-12-16] MEDS: METOCLOPRAMIDE 5 MG TABLET PEG SCH (23:10)
[2018-12-16] MEDS: ENOXAPARIN 40 MG/0.4 ML SYRINGE SUBCUT SCH (23:10)
[2018-12-16] MEDS: hydrALAZINE 25 MG TABLET PEG SCH (23:10)
[2018-12-16] MEDS: MICONAZOLE 2% CREAM 57 GM TUBE TOP SCH (23:12)
[2018-12-17] MEDS: INSULIN REGULAR 100 UNIT/ML SUBCUT SCH ×4 (01:54→23:16)
[2018-12-17] MEDS: METOCLOPRAMIDE 5 MG TABLET PEG SCH ×3 (05:13→21:46)
[2018-12-17] MEDS: INSULIN NPH 100 UNIT/ML SUBCUT SCH ×2 (06:31→23:16)
[2018-12-17 06:53] LABS: Basophils % 0.5 % (0.0-0.8); Eosinophils # 0.2 10*3/uL (0.0-0.87); Eosinophils % 3.1 % (0.00-10.9); Hematocrit 24.3 VOL% (42.0-52.0); Hemoglobin 7.5 GM/DL (14.0-18.0); Immature Granulocytes % 0.3 %; Immature Granulocytes Absolute 0.02 #; Lymphocytes # 1.1 10*3/uL (1.4-4.0); Lymphocytes % 14.9 % (21.2-54.2); Mean Corpuscular HGB Conc 30.9 GM/DL (32-36); Mean Corpuscular Hemoglobin 26 PG (27-34); Mean Corpuscular Volume 85.6 FL (87-102); Monocytes # 0.6 10*3/uL (0.11-0.8); Monocytes % 7.5 % (1.7-12.7); Neutrophils # 5.4 10*3/uL (1.4-7.4); Neutrophils % 73.7 % (38.7-73.9); Platelet Count 268 T/CUMM (130-400); Red Blood Count 2.84 MC/CUMM (3.8-5.5); Red Cell Distribution Width 15.5 % (9.3-17.3); White Blood Count 7.3 T/CUMM (4-12)
[2018-12-17 07:26] LABS: Alanine Aminotransferase 11 U/L (16-61); Albumin 2.3 G/DL (3.4-5.0); Alkaline Phosphatase 85 U/L (45-117); Aspartate Amino Transferase 11 U/L (0-37); Bilirubin,Total < 0.39 MG/DL (0.2-1.0); Blood Urea Nitrogen 43 MG/DL (7-18); Calcium 8.8 MG/DL (8.5-10.1); Glucose 95 MG/DL (74-106); Osmolality,Calculated 293.1 MOS/KG (273-304); Potassium 4.9 MMOL/L (3.5-5.1); Sodium 142 MMOL/L (136-145); Total Protein 6.2 G/DL (6.4-8.3)
[2018-12-17] MEDS: hydrALAZINE 25 MG TABLET PEG SCH ×3 (08:46→21:44)
[2018-12-17] MEDS: MICONAZOLE 2% CREAM 57 GM TUBE TOP SCH ×2 (08:46→21:09)
[2018-12-17] MEDS: MEROPENEM 500 MG in SYRINGE 1 EACH IV SCH ×2 (09:02→17:45)
[2018-12-17] MEDS: SODIUM CHLORIDE 0.9% 1,000 ML IV SCH (09:10)
[2018-12-17] MEDS ORDERED: LEVOFLOXACIN INJ 500 MG in PREMIX 1 EACH IV SCH (21:00)
[2018-12-17] MEDS: ENOXAPARIN 40 MG/0.4 ML SYRINGE SUBCUT SCH (21:44)
[2018-12-18] MEDS: INSULIN REGULAR 100 UNIT/ML SUBCUT SCH ×4 (01:49→20:51)
[2018-12-18] MEDS: MEROPENEM 500 MG in SYRINGE 1 EACH IV SCH ×3 (01:50→17:37)
[2018-12-18] MEDS: METOCLOPRAMIDE 5 MG TABLET PEG SCH ×3 (04:30→20:52)
[2018-12-18 06:09] LABS: Basophils % 0.5 % (0.0-0.8); Eosinophils # 0.2 10*3/uL (0.0-0.87); Eosinophils % 2.2 % (0.00-10.9); Hematocrit 25.1 VOL% (42.0-52.0); Hemoglobin 7.4 GM/DL (14.0-18.0); Immature Granulocytes % 0.5 %; Immature Granulocytes Absolute 0.04 #; Lymphocytes # 1.2 10*3/uL (1.4-4.0); Lymphocytes % 15.8 % (21.2-54.2); Mean Corpuscular HGB Conc 29.5 GM/DL (32-36); Mean Corpuscular Hemoglobin 25 PG (27-34); Mean Corpuscular Volume 86.3 FL (87-102); Mean Platelet Volume 10.1 FL (9.6-12.0); Monocytes # 0.6 10*3/uL (0.11-0.8); Monocytes % 8.5 % (1.7-12.7); Neutrophils # 5.3 10*3/uL (1.4-7.4); Neutrophils % 72.5 % (38.7-73.9); Platelet Count 282 T/CUMM (130-400); Red Blood Count 2.91 MC/CUMM (3.8-5.5); Red Cell Distribution Width 15.7 % (9.3-17.3); White Blood Count 7.3 T/CUMM (4-12)
[2018-12-18 06:19] LABS: Calcium 8.5 MG/DL (8.5-10.1); Potassium 4.7 MMOL/L (3.5-5.1)
[2018-12-18 06:37] LABS: % Iron Saturation 18.5 % (18-50); Ferritin 258.9 ng/ml (26-388)
[2018-12-18] MEDS: SODIUM CHLORIDE 0.9% 1,000 ML IV SCH ×2 (10:33→14:42)
[2018-12-18] MEDS: INSULIN NPH 100 UNIT/ML SUBCUT SCH ×2 (10:34→18:49)
[2018-12-18] MEDS: hydrALAZINE 25 MG TABLET PEG SCH ×3 (10:35→20:52)
[2018-12-18] MEDS: MICONAZOLE 2% CREAM 57 GM TUBE TOP SCH ×2 (10:35→20:53)
[2018-12-18 11:29] LABS: Apearance,Urine CLOUDY (Clear); Bilirubin,Urine Negative (Negative); Blood, Urine Negative (Negative); Glucose,Urine (UA) Negative (Negative); Ketones,Urine Negative (Negative); Nitrite,Urine Positive (Negative); Protein,Urine Negative; RBC,Urine 11 /HPF (0-4); Squamous Epithelial Cell,Urine Occasional /HPF (0-10); Urine Color Yellow (Yellow); Urine Specific Gravity 1.011 (1.001-1.035); Urine Urobilinogen < 2.0 EU/DL (0.2-1.0); WBC,Urine 361 /HPF (0-6)
[2018-12-18] MEDS: TAMSULOSIN 0.4 MG CAPSULE PO SCH (14:41)
[2018-12-18] MEDS: ENOXAPARIN 40 MG/0.4 ML SYRINGE SUBCUT SCH (20:53)
[2018-12-19] MEDS: SODIUM CHLORIDE 0.9% 1,000 ML IV SCH ×2 (01:01→14:42)
[2018-12-19] MEDS: INSULIN REGULAR 100 UNIT/ML SUBCUT SCH ×5 (02:38→21:34)
[2018-12-19] MEDS: MEROPENEM 500 MG in SYRINGE 1 EACH IV SCH ×3 (02:39→22:06)
[2018-12-19] MEDS: METOCLOPRAMIDE 5 MG TABLET PEG SCH ×3 (02:46→22:03)
[2018-12-19 05:36] LABS: Basophils % 0.2 % (0.0-0.8); Eosinophils # 0.2 10*3/uL (0.0-0.87); Eosinophils % 3.5 % (0.00-10.9); Hematocrit 23.2 VOL% (42.0-52.0); Immature Granulocytes % 0.9 %; Immature Granulocytes Absolute 0.05 #; Lymphocytes # 1.1 10*3/uL (1.4-4.0); Mean Corpuscular HGB Conc 30.2 GM/DL (32-36); Mean Corpuscular Hemoglobin 26 PG (27-34); Mean Corpuscular Volume 86.6 FL (87-102); Mean Platelet Volume 10.2 FL (9.6-12.0); Monocytes # 0.4 10*3/uL (0.11-0.8); Monocytes % 7.2 % (1.7-12.7); Neutrophils # 3.9 10*3/uL (1.4-7.4); Neutrophils % 68.2 % (38.7-73.9); Platelet Count 226 T/CUMM (130-400); Red Blood Count 2.68 MC/CUMM (3.8-5.5); Red Cell Distribution Width 15.3 % (9.3-17.3); White Blood Count 5.7 T/CUMM (4-12)
[2018-12-19 05:51] LABS: Calcium 8.2 MG/DL (8.5-10.1); Potassium 4.5 MMOL/L (3.5-5.1)
[2018-12-19] MEDS ORDERED: MAGNESIUM SULF RIDER 2 GM in PREMIX 1 EACH IV PRN (07:12)
[2018-12-19] MEDS ORDERED: MAGNESIUM SULF RIDER 4 GM in PREMIX 1 EACH IV PRN (07:12)
[2018-12-19] MEDS: INSULIN NPH 100 UNIT/ML SUBCUT SCH ×3 (08:01→22:04)
[2018-12-19] MEDS: hydrALAZINE 25 MG TABLET PEG SCH ×3 (08:02→22:03)
[2018-12-19] MEDS: MICONAZOLE 2% CREAM 57 GM TUBE TOP SCH ×2 (08:03→22:05)
[2018-12-19] MEDS: TAMSULOSIN 0.4 MG CAPSULE PO SCH (08:03)
[2018-12-19] MEDS ORDERED: SODIUM CHLORIDE 0.9% 1,000 ML IV PRN (08:54)
[2018-12-19] MEDS: ENOXAPARIN 40 MG/0.4 ML SYRINGE SUBCUT SCH (22:02)
[2018-12-20] MEDS: INSULIN REGULAR 100 UNIT/ML SUBCUT SCH ×3 (00:30→14:00)
[2018-12-20] MEDS: METOCLOPRAMIDE 5 MG TABLET PEG SCH ×2 (03:41→10:31)
[2018-12-20 05:39] LABS: Calcium 8.2 MG/DL (8.5-10.1); Osmolality,Calculated 282.4 MOS/KG (273-304); Potassium 4.1 MMOL/L (3.5-5.1); Prealbumin 17.8 MG/DL (20-40)
[2018-12-20] MEDS: MEROPENEM 500 MG in SYRINGE 1 EACH IV SCH (06:05)
[2018-12-20] MEDS ORDERED: cloNIDine 0.3 MG/24 HR PATCH TRANSDERM SCH (09:00)
[2018-12-20] MEDS ORDERED: ERTAPENEM 1,000 MG in SODIUM CHLORIDE 0.9% 100 ML IV SCH (10:00)
[2018-12-20] MEDS: TAMSULOSIN 0.4 MG CAPSULE PO SCH (10:28)
[2018-12-20] MEDS: MICONAZOLE 2% CREAM 57 GM TUBE TOP SCH (10:31)
[2018-12-20] MEDS: INSULIN NPH 100 UNIT/ML SUBCUT SCH (10:31)
[2018-12-20] MEDS: hydrALAZINE 25 MG TABLET PEG SCH (10:31)
[2018-12-20] MEDS: SODIUM CHLORIDE 0.9% 1,000 ML IV SCH (11:20)
[2018-12-20 13:05] VITALS: BP 137/52
== END 2018-12-20 15:10 | DRG 690 ==
LOC: EDBD → EDUNIT# → N.ED 16:37 → N.EDINP 19:14 → N.5E 20:28
PROVIDERS: ADMIT Internal Medicine; ATTEND Internal Medicine